=== PATIENT | female | born 1940 | race Caucasian/White ===

== ENCOUNTER 2020-04-09 08:48 | Inpatient (IN) ==
--- NOTE | 2020-04-04 10:33 | Anesthesiology Consultation ---
Date of Service April 04, 2020 Assessment & Plan (1) Encounter for pre-operative examination: - Per assessment on 04/02: Travel screen negative. No known COVID-19 positive contacts or current COVID-19 related symptoms. Surgeon arranging preop COVID ju ting (done 04/03 at [facility] surgeon's office states they will fax report when they receive it). Awaiting results. - Cardiology office visit: 11/22/19: "Patient is considered a lowintermediate cardiac risk. We will wait to schedule at least 6 weeks after pacemaker insertion, which was done 10/31/2019." DOS scheduled for 04/09. Chart Review Chart Review: Acceptable Risk for Surgery (pending evlauaiton AM DOS) and Patient seen in Pre Admission Testing (01/01/20) History Surgery Operation Date: 04/09/20 11:40 Proposed Procedures p Right Total Knee Arthroplasty - Scotty Funk DO Height/Weight Height: 4 ft 8 in Weight: 68.039 kg Allergies Allergy/AdvReac Type Severity Reaction Status Date / Time adhesive Allergy Mild rash from Verified 04/02/20 12:07 tape, EKG electrode leads balsam jose r Allergy Mild rash Verified 04/02/20 12:07 hydroquinone Allergy Unknown unknown Verified 04/02/20 12:07 reaction, "told beam dyer operator by silo man" thimerosal Allergy Unknown cobalt Verified 04/02/20 12:07 dichloride thimerosal contact solution- itching codeine AdvReac Mild N/V Verified 04/02/20 12:07 Medications Home Medications Medication Instructions Recorded Confirmed Last Taken albuterol sulfate 90 mcg/actuation 1 - 2 puffs INH QID PRN 12/14/17 04/02/20 Unknown aerosol inhaler ascorbic acid (vitamin C) 100 mg 100 mg PO QAM 12/14/17 04/02/20 Unknown tablet aspirin 81 mg tablet,delayed 81 mg PO QPM 12/14/17 04/02/20 Unknown release calcium carbonate 600 mg calcium 600 mg PO QAM tab 12/14/17 04/02/20 Unknown (1,500 mg) tablet conjugated estrogens 0.625 mg 0.625 mg PO QAM 12/14/17 04/02/20 Unknown tablet cyclosporine 0.05 % eye drops 1 drops OPB Q12H 12/14/17 04/02/20 Unknown flaxseed oil 1,300 mg-omega 3,6,9 1 cap PO QAM cap 12/14/17 04/02/20 Unknown 845 mg-117 mg-117 mg capsule furosemide 20 mg tablet 20 mg PO QAM 12/14/17 04/02/20 Unknown metronidazole 0.75 % topical cream 1 appln TOP DAILY gm 12/14/17 04/02/20 Unknown multivitamin 1 tab PO QAM 12/14/17 04/02/20 Unknown nitroglycerin 400 mcg/spray 1 sprays SUBLINGUAL Q5M PRN gm 12/14/17 04/02/20 Unknown translingual omeprazole 20 mg capsule,delayed 20 mg PO QAM 12/14/17 04/02/20 Unknown release potassium chloride 10 mEq 20 meq PO QAM 12/14/17 04/02/20 Unknown capsule,extended release pravastatin 80 mg tablet 80 mg PO QPM 12/14/17 04/02/20 Unknown gabapentin 300 mg capsule 300 mg PO HS #90 cap 07/21/18 04/02/20 Unknown conjugated estrogens [Premarin] 0.625 mg VAGINAL HS 12/26/19 04/02/20 Unknown triamterene-hydrochlorothiazid 1 tab PO QAM 12/26/19 04/02/20 Unknown [Maxzide-25mg] valsartan [Diovan] 80 mg PO QAM 12/26/19 04/02/20 Unknown vitamin E 1 tab PO QAM 12/26/19 04/02/20 Unknown metoprolol succinate [Toprol XL] 12.5 mg PO HS 01/29/20 04/02/20 Unknown Past Medical History Medical History Anemia Asthma stable Benign thyroid cyst CAD (coronary artery disease) non-obstructive DJD (degenerative joint disease) Dyslipidemia Fatty liver GERD (gastroesophageal reflux disease) controlled History of diverticulitis HTN (hypertension) Lumbar spinal stenosis Osteoarthritis 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, follows with [facility] [place] Peripheral neuropathy Past Family History Family History Mother Family history of diabetes mellitus Brother Family history of diabetes mellitus Past Surgical History Surgical History History of bunionectomy Left foot History of cardiac cath many years ago History of cataract surgery R/L History of colonoscopy History of tonsillectomy and adenoidectomy History of tooth extraction Hx of appendectomy Hx of breast biopsy Hx of cholecystectomy Hx of hysterectomy Social History Smoking Status: Never smoker Hx Alcohol Use: Yes alcohol intake frequency: holidays/special occasions only substance use type: does not use Testing Laboratory Results 04/03/20 WBC 5.1 H/H 10.8/33.1 PLATELETS 288 SODIUM 137 POTASSIUM 4.0 CHLORIDE 102 CO2 23 BUN 25 CREATININE 0.79 GLUCOSE 107 PT 10.9 PTT 30 INR 1.0 UA negative HGBA1C 6.2% Electrocardiogram Date: 01/01/20 Atrial-sensed ventricular-paced rhythm at 66bpm. Chest X-Ray Date: 01/01/20 FINDINGS: Cardiomediastinal and hilar silhouettes are within normal limits. Left pectoral pacer. The imaged leads appear intact. Calcified plaque of the thoracic aorta. There is no pneumothorax, pleural effusion, airspace consolidation or overt pulmonary edema. Thoracolumbar sigmoidal scoliosis with degenerative changes of the shoulders and spine. Anterolisthesis L4 on L5 is likely on a degenerative basis. Mild compression of the L1 vertebral body is likely chronic. IMPRESSION: No acute process. Report forwarded to PCP for continuity of care* Echocardiogram Date: 03/17/19 LVEF 60%. No regional wall motion abnormalities. Mild concentric LVH. Mild AV sclerosis. Moderate mitral annular calcification. PASP is 37 to 42 mmHg. Grade 1 diastolic dysfunction. Mild MR. mild TR. mild pulmonary hypertension. Grade 1 diastolic dysfunction. Stress Test Date: 07/19/19 Type: nuclear Based upon EKG criteria, this test is negative. Based upon nuclear imaging findings there is no evidence of myocardial ischemia or infarction. LVEF 71%. Other Testing Pacer check: 11/13/19: This is a normal implantable pacemaker remote follow-up. No significant device related abnormalities were noted. 7.4% RA paced. 95.0% RV paced. Battery life MOS 5 years. Mode DDDR. Device type [employer].
--- NOTE | 2020-04-07 18:39 | History & Physical Report ---
Date of Service April 07, 2020 date of surgery: 04/09/20 Procedure: Right Total Knee Arthroplasty Assessment & Plan (1) Arthritis of right knee: Risks and benefits of procedure discussed in detail today, patient would like to proceed with a Right total knee replacement at [facility] as scheduled. will obtain cardiac clearance prior to surgery as well as obtain PATs at [facility]. Will place on ASA 81mg po bid x 1 month post op, f/u 2 weeks post op for routine post-operative care and x-ray, sooner if having any problems. will make arrangements for HHPT at the time of discharge. At this point in time, has failed conservative measures and would like to proceed with surgical intervention. The risks and benefits have been discussed including, but not limited to, risk of infection, nerve injury, stiffness, loss of motion, failure to improve, etc. Reasonable outcomes and options of treatment were discussed. An explanation of appropriate alternatives to the procedure that may be advantageous were discussed and their risks and benefits, as well as the risks and benefits of not proceeding with treatment. I offered to answer any additional inquiries concerning the treatment involved. All the patient's questions were answered. The patient is agreeable, understanding of the treatment plan and alternatives, and wishes to proceed with the treatment plan. History of Present Illness Chief Complaint: Right knee pain Primary Care Provider: [place] Christine Warren Gilliland is a 79 year old female who complains of Right knee pain, presents for pre-op evaluation prior to a Right total knee replacement by dr Funk at [facility]. she complains of pain, crepitus, decreased range of motion, instability and stiffness in her Right knee. she states that the symptoms have been chronic and non-traumatic. Currently the patient states that the symptoms are moderate- severe. The pain is described as aching, sharp and throbbing. The symptoms occur continuously. The symptoms are aggravated by ascending stairs, daily activities, first steps while awake walking. Prior NSAIDs include IBU and Aleve. she has been treated with previous cortisone and visco injections in the past without much relief. she has had prior right knee scope with partial menisectomy approxiamately 12 years ago. Allergies Allergy/AdvReac Type Severity Reaction Status Date / Time adhesive Allergy Mild rash from Verified 04/02/20 12:07 tape, EKG electrode leads balsam jose r Allergy Mild rash Verified 04/02/20 12:07 hydroquinone Allergy Unknown unknown Verified 04/02/20 12:07 reaction, "told progress man by salon receptionist" thimerosal Allergy Unknown cobalt Verified 04/02/20 12:07 dichloride thimerosal contact solution- itching codeine AdvReac Mild N/V Verified 04/02/20 12:07 Home Medications Medication Instructions Recorded Confirmed Type albuterol sulfate 90 mcg/actuation 1 - 2 puffs INH QID PRN 12/14/17 04/02/20 History aerosol inhaler ascorbic acid (vitamin C) 100 mg 100 mg PO QAM 12/14/17 04/02/20 History tablet aspirin 81 mg tablet,delayed 81 mg PO QPM 12/14/17 04/02/20 History release calcium carbonate 600 mg calcium 600 mg PO QAM tab 12/14/17 04/02/20 History (1,500 mg) tablet conjugated estrogens 0.625 mg 0.625 mg PO QAM 12/14/17 04/02/20 History tablet cyclosporine 0.05 % eye drops 1 drops OPB Q12H 12/14/17 04/02/20 History flaxseed oil 1,300 mg-omega 3,6,9 1 cap PO QAM cap 12/14/17 04/02/20 History 845 mg-117 mg-117 mg capsule furosemide 20 mg tablet 20 mg PO QAM 12/14/17 04/02/20 History metronidazole 0.75 % topical cream 1 appln TOP DAILY gm 12/14/17 04/02/20 History multivitamin 1 tab PO QAM 12/14/17 04/02/20 History nitroglycerin 400 mcg/spray 1 sprays SUBLINGUAL Q5M PRN gm 12/14/17 04/02/20 History translingual omeprazole 20 mg capsule,delayed 20 mg PO QAM 12/14/17 04/02/20 History release potassium chloride 10 mEq 20 meq PO QAM 12/14/17 04/02/20 History capsule,extended release pravastatin 80 mg tablet 80 mg PO QPM 12/14/17 04/02/20 History gabapentin 300 mg capsule 300 mg PO HS #90 cap 07/21/18 04/02/20 Rx conjugated estrogens [Premarin] 0.625 mg VAGINAL HS 12/26/19 04/02/20 History triamterene-hydrochlorothiazid 1 tab PO QAM 12/26/19 04/02/20 History [Maxzide-25mg] valsartan [Diovan] 80 mg PO QAM 12/26/19 04/02/20 History vitamin E 1 tab PO QAM 12/26/19 04/02/20 History metoprolol succinate [Toprol XL] 12.5 mg PO HS 01/29/20 04/02/20 History Past Med/Surg History Medical History Anemia Asthma stable Benign thyroid cyst CAD (coronary artery disease) non-obstructive DJD (degenerative joint disease) Dyslipidemia Fatty liver GERD (gastroesophageal reflux disease) controlled History of diverticulitis HTN (hypertension) Lumbar spinal stenosis Osteoarthritis 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, follows with [facility] [place] Peripheral neuropathy Surgical History History of bunionectomy Left foot History of cardiac cath many years ago History of cataract surgery R/L History of colonoscopy History of tonsillectomy and adenoidectomy History of tooth extraction Hx of appendectomy Hx of breast biopsy Hx of cholecystectomy Hx of hysterectomy Family History Mother Family history of diabetes mellitus Brother Family history of diabetes mellitus Social History Smoking Status: Never smoker Second Hand Exposure: Yes (IN THE PAST); Hx Alcohol Use: Yes Preferred Language: Monegasque Director Asset Required: No Beliefs That Will Affect Care: None Current Living Situation: Spouse Feels Safe at Home: Yes Safety Concerns: Feels Safe At This Time Assistive Devices: Cane Review of Systems Review of Systems: All systems reviewed & are unremarkable except as noted in HPI & below Constitutional: no fever, no chills and no sweats Respiratory: no cough and no dyspnea Cardiovascular: no chest pain, no dyspnea and no orthopnea Gastrointestinal: no abdominal pain, no nausea and no vomiting Musculoskeletal: as per Subjective / HPI Physical Exam Physical Exam: HT: 4ft 11in WT: 67.5kg BP: 112/70 Constitutional: WD/WN, vitals as above no acute distress Respiratory: normal respiratory effort, lungs clear to auscultation no respiratory distress, no labored breathing and does not use accessory muscles Cardiovascular: RRR, no murmur, no edema Gastrointestinal (Abdomen): normal bowel sounds, soft, nontender, no hepatosplenomegaly Musculoskeletal: Knee: + knee abnormal to inspection (Right Knee-), + effusion (+1 effusion), + limited ROM of knee (ROM 0/3/110), + knee ROM with crepitation, + joint line tenderness (medial joint line) and + Lily's sign positive; no deformity, no skin erythema, no ecchymosis, no valgus laxity, no varus laxity, anterior drawer test negative, Renuka's sign negative and pivot shift test negative Results & Data Results & Data ([facility]) Diagnostic Findings right knee x-ray from 11/21/19 showing complete loss joint space medial compartment with overall varus alignment, there is also narrowing of the lateral compartment and patellofemoral joint. there is osteophyte formation, subchondral sclerosis noted, no loose bodies, no acute bony pathology. overall impression tricompartmental degenerative changes to the right knee.
[~2020-04-09 08:48] MED LIST: ACETAMINOPHEN 500 MG TAB PO SCH; BUPIVACAINE 0.25% 30 ML VIAL ONE; BUPIVACAINE 0.5 % 5 MG/1 ML PF 10ML VIAL ONE; CeleBREX 200 MG CAP PO SCH; FAMOTIDINE 20 MG TAB PO SCH; GABAPENTIN 300 MG CAP PO SCH; LR 500ML BOLUS, THEN 15ML/HR IV SCH; METOCLOPRAMIDE HCL 10 MG TABLET PO SCH; ROPIVACAINE 0.5% HCL/PF 150 MG, BUPIVACAINE 0.75% MPF 20 ML, EPINEPHrine 30MG/30ML (OR ... INSTIL SCH; TRANEXAMIC ACID 1,000 MG **IV Intra-op IV SCH; TRANEXAMIC ACID 1,000 MG **IV Pre-op IV SCH; ceFAZolin 1000MG 1,000 MG/7.5 ML SYR IV SCH; dexAMETHasone 4 MG TAB PO SCH
--- NOTE | 2020-04-09 10:20 | History & Physical Bridge Note ---
Date of Service April 09, 2020 History & Physical Bridge Note I have examined the patient, reviewed the History & Physical and in the interval since the performance of the History & Physical I have noted the following changes of clinical significance: no changes noted
[2020-04-09] MEDS ORDERED: BACITRACIN INJ 50,000 UNIT VIAL ONE (10:49)
[2020-04-09] MEDS ORDERED: ORTHO JOINT ANESTHETIC ONE (10:49)
[2020-04-09] MEDS ORDERED: MIDAZOLAM HCL 1 MG/ML 2ML VIAL ONE (10:50)
[2020-04-09] MEDS ORDERED: PROPOFOL IV EMULSION 10 MG/ML 20 ML VIAL IV ONE (10:50)
[2020-04-09] MEDS ORDERED: LIDOCAINE HCL 2% 2 ML VIAL/AMP(20MG/ML) INFIL ONE (10:50)
[2020-04-09] MEDS ORDERED: ATROPINE SULFATE 0.1 MG/ML 10ML SYR IV PRN (10:57)
[2020-04-09] MEDS ORDERED: ePHEDrine sulfate 50 MG/ML AMP IV PRN (10:57)
[2020-04-09] MEDS ORDERED: ONDANSETRON INJ 2 MG/ML 2 ML VIAL IV PRN (10:57)
[2020-04-09] MEDS ORDERED: fentaNYL citrate 100 MCG/2 ML VIAL IV PRN (10:57)
--- NOTE | 2020-04-09 13:02 | Operative Report ---
Post Operative Report Pre & Post Diagnosis Operation Date: 04/09/20 11:15 Pre-Op Diagnosis: Osteoarthritis Knee Right Post-Op Diagnosis: Osteoarthritis Knee Right I identified the patient and participated in the time-out.: Yes Procedure Operation Date: 04/09/20 11:15 Actual Procedures p Right Total Knee Arthroplasty(Right) utilizing [employer]-g[employer] journey 2 with block size 2 femur size 1 tibia 11 polyethylene 29 round patella- Scotty Funk DO Surgeon Scotty Funk DO Road Freight Brake Coupler Eh [id number] Estimated Blood Loss 5 Findings Consistent with Post-Op Diagnosis Patient presents with severe end-stage DJD subluxation of femur on tibia eburnated [id number] large medial and lateral osteophytes eburnated subchondral cystic changes with moderate to large effusion Specimens Bone and cartilage Drains Medium bore Hemovac Anesthesia Type MAC Spinal Regional Disposition Accompanied Patient To Recovery: No Disposition: Recovery Room Indications Patient presents with ongoing planes of pain about the right knee with longstanding DJD with injections for decades she has eburnated [id number] marginal osteophytes subluxation of femur medially on tibia varus alignment large effusion Description of Procedure After proper prepping and draping of the Right lower extremity anterior midline incision was made over the region of the extensor extensor mechanism after meticulous hemostasis was obtained and maintained in subcutaneous tissues a medial parapatellar incision was made The patella was subluxed lateralward the medial lateral gutter were cleaned from any hypertrophic synovitis and scar tissue of the distal femoral block was placed and the distal femoral osteotomy cut was made subsequently the chamfers anterior and posterior osteotomy cuts were made utilizing the 4-in-1 block the tibia was subsequently subluxed anteriorward medial and ateral meniscal remnants were excised in their entirety remnants of the anterior and posterior cruciate ligaments were excised in their entirety excellent exposure of the proximal tibia was obtained the tibial osteotomy guide was placed on the proximal tibial osteotomy cut was made once again the knee was irrigated with copious amounts of sterile saline solution the patella was subsequently everted lateralward thickened scar tissue around the patella was removed the patella was subsequently cut utilizing a freehand technique and was drilled prepared for final preparation and placement of patella socially flexion-extension gaps were checked and the equal and symmetric trials were placed to the appropriate femoral and tibial trials with poly-spacer being placed for equal flexion and extension gaps and full range of motion including extension to 0 and flexion to 140 the trial components after having been taken to recovery range of motion was subsequently removed meticulous hemostasis was obtained and maintained subsequently a knee block injection of joint cocktail including ropivacaine 0.5% 150 mg. Bupivacaine 0.5% epinephrine 1-200,030 mL's toradol 30 mg dexamethasone 4 mg ketamine 10 mg clonidine 100 micrograms normal saline solution 30 mg was infiltrated into the soft tissues of the posterior knee medial lateral gutters and periosteal synovium special attention was paid to protect neurovascular structures at all times subsequently trial components having been removed the knee was irrigated with sterile saline solution. debris was removed the proximal tibia was subsequently prepared and was made ready for the placement of the tibial component tibial component was also cemented and tamped into position the femoral component was subsequently placed and cemented in the position the patellar component was subsequently cemented in position because hemostasis once again obtained and maintained wound having been thoroughly irrigated with debridement and debridement lavage was performed as well as a medial parapatellar incision closed with #1 Vicryl in interrupted fashion subcutaneous was closed with #2 Vicryl skin was closed with skin clips. PA-C was necessary for prepping and drapping as well as wound closure of deep fascia Sub cutaneous tissue and skin and was necessary for the case. A sterile compressive dressing was placed patient was taken to recovery in stable condition of report dictated by Good I attest to the content of the Intraoperative Record and any orders documented therein. Any exceptions are noted below. I attest to the content of the Intraoperative Record and any orders documented therein. Any exceptions are noted below.
--- NOTE | 2020-04-09 15:24 | Anesthesiology Progress Note ---
Date of Service April 09, 2020 Anesthesia Post Procedure Vital Signs Vital Signs: Temp Pulse Pulse Resp BP BP Pulse Ox 04/09/20 15:15 37.4 C 76 16 156/66 H 98 04/09/20 15:00 80 17 150/63 H 98 04/09/20 14:55 68 19 136/66 95 04/09/20 14:45 69 13 157/69 H 95 04/09/20 14:35 72 20 153/73 H 100 04/09/20 14:25 69 17 148/65 H 97 04/09/20 14:15 70 17 142/65 H 98 04/09/20 14:05 68 17 142/67 H 98 04/09/20 13:55 72 19 144/65 H 97 04/09/20 13:45 79 15 143/65 H 100 04/09/20 13:39 36.9 C 71 16 130/68 100 04/09/20 09:32 36.6 C 75 22 165/69 H 100 Pain Intensity Right Knee: Pain Intensity: 0 Transfer of Care Handoff Completed per policy Notes Mental Status: alert / awake / arousable and participated in evaluation Nausea / Vomiting: adequately controlled Pain: adequately controlled Airway Patency, RR, SpO2: stable & adequate BP & HR: stable & adequate Hydration State: stable & adequate Neuraxial Anesthesia: was administered and sensory block is resolving Anesthetic Complications: no major complications apparent and Pt Satisfied with anesthetic care
[2020-04-09] MEDS ORDERED: NALOXONE HCL 0.4 MG/1 ML VIAL/CARP IV PRN (15:46)
[2020-04-09] MEDS ORDERED: MAGNESIUM HYDROXIDE SUSP 30 ML UDC PO PRN (15:46)
[2020-04-09] MEDS ORDERED: diphenhydrAMINE Capsule 25 MG CAP PO PRN (15:46)
[2020-04-09] MEDS ORDERED: HYDROmorphone INJ 1 MG/ML SYRINGE IV PRN (15:46)
[2020-04-09] MEDS ORDERED: ALBUTEROL HFA 8 GM INHALER INH PRN (15:46)
[2020-04-09] MEDS ORDERED: bisacodyL 10 MG SUPP PR PRN (15:46)
--- NOTE | 2020-04-09 16:18 | Hospitalist Consultation ---
Date of Consultation April 09, 2020 Assessment & Plan (1) Status post total right knee replacement: - Pain management, bowel regimen and DVT ppx with ASA 81 mg BID per the primary team - PT/OT consults, pt is planning on outpatient therapy with services, then outpatient - Follow am CBC to monitor for acute blood loss, pt with hx of anemia (2) CAD (coronary artery disease): - Follows with [facility] [place] as outpt with Dr. Cunningham - Continue asa 81 mg, lasix 20 mg QAM, metoprolol succinate 12.5 mg daily, triamterene-hctz 25 mg daily, valsartan 80 mg daily - will turn off IVF tomorrow am and resume home diuretics. (3) HTN (hypertension): - Continue meds as above (4) Dyslipidemia: - Cont pravastatin 80 mg QPM (5) Pacemaker: - hx of such, placed 10/31/[address] by Dr. Calle (6) Asthma: - Hx of such - does not appear to be on any inhalers or supplemental O2. (7) Anemia: - Hs of such, monitor with am labs for acute blood loss anemia. Not on supplementation per home med rec. (8) Peripheral neuropathy: - Cont gabapentin 300 mg HS (9) GERD (gastroesophageal reflux disease): - Continue omeprazole - pt reports history of diverticulosis - encourage bowel regimen and good oral intake s/p surgery DVT ppx: teds, scds, ambulation, asa 81 mg BID CODE: FULL Dispo: From home, discharge likely within 1-2 days per the primary team. Thank you for involving us in the care of Mrs. Austin. Please do not hesitate to call with questions or concerns. At this time medicine service will sign off. Supervising Physician Co-Signing Physician Notes Patient was seen and examined independently I discussed the case with Talia Hercules PAC I reviewed pertinent past medical social family history and also the plan of care and agree with the plan of care. pt is doing well post op, still with nerve block in affect, on 4 hypertensive meds two are diuretics, will continue these but eval bp in am pt is awake and alert, cardiac is regular , lungs clear, right leg still with anesthesia check labs in am Any exceptions will be noted below History of Present Illness Reason for Consultation: HTN, CAD, post op medical management Requesting Physician: Dr. Funk Attending Physician: Scotty Funk, History of Present Illness This is an 79 yo F with PMHx of CAD, s/p pacemaker insertion for hx of bradycardia, HTN, HLD, asthma, lumbar spinal stenosis, GERD, fatty liver, anemia, peripheral neuropathy, osteoarthritis who presented for Right total knee arthroplasty by Dr. Funk on 04/09/2020. She reports doing well but that her left lower leg is still quite numb after having surgery. She is able to wiggle her toes without much difficulty. Patient reports that she is going to have home health services for PT and OT directly after discharge and then transition over to outpatient PT/OT afterwards. She lives at home with her who is able to help around the house. Her pain is currently well controlled. Last BM was yesterday morning. Patient did not take any of her scheduled antihypertensives this morning, and reports that she follows with cardiology in [place]. Allergies Allergy/AdvReac Type Severity Reaction Status Date / Time adhesive Allergy Mild rash from Verified 04/09/20 09:20 tape, EKG electrode leads balsa jose r Allergy Mild rash Verified 04/09/20 09:20 hydroquinone Allergy Unknown unknown Verified 04/09/20 09:20 reaction, "told machine driller by cemetery counselor" thimerosal Allergy Unknown cobalt Verified 04/09/20 09:20 dichloride thimerosal contact solution- itching codeine AdvReac Mild N/V Verified 04/09/20 09:20 Home Medications Medication Instructions Recorded Confirmed Type albuterol sulfate 90 mcg/actuation 1 - 2 puffs INH QID PRN 12/14/17 04/09/20 History aerosol inhaler ascorbic acid (vitamin C) 100 mg 100 mg PO QAM 12/14/17 04/09/20 History tablet aspirin 81 mg tablet,delayed 81 mg PO QPM 12/14/17 04/09/20 History release calcium carbonate 600 mg calcium 600 mg PO QAM tab 12/14/17 04/09/20 History (1,500 mg) tablet conjugated estrogens 0.625 mg 0.625 mg PO QAM 12/14/17 04/09/20 History tablet cyclosporine 0.05 % eye drops 1 drops OPB Q12H 12/14/17 04/09/20 History flaxseed oil 1,300 mg-omega 3,6,9 1 cap PO QAM cap 12/14/17 04/09/20 History 845 mg-117 mg-117 mg capsule furosemide 20 mg tablet 20 mg PO QAM 12/14/17 04/09/20 History metronidazole 0.75 % topical cream 1 appln TOP DAILY gm 12/14/17 04/09/20 History multivitamin 1 tab PO QAM 12/14/17 04/09/20 History nitroglycerin 400 mcg/spray 1 sprays SUBLINGUAL Q5M PRN gm 12/14/17 04/09/20 History translingual omeprazole 20 mg capsule,delayed 20 mg PO QAM 12/14/17 04/09/20 History release potassium chloride 10 mEq 20 meq PO QAM 12/14/17 04/09/20 History capsule,extended release pravastatin 80 mg tablet 80 mg PO QPM 12/14/17 04/09/20 History gabapentin 300 mg capsule 300 mg PO HS #90 cap 07/21/18 04/09/20 Rx conjugated estrogens [Premarin] 0.625 mg VAGINAL HS 12/26/19 04/09/20 History triamterene-hydrochlorothiazid 1 tab PO QAM 12/26/19 04/09/20 History [Maxzide-25mg] valsartan [Diovan] 80 mg PO QAM 12/26/19 04/09/20 History vitamin E 1 tab PO QAM 12/26/19 04/09/20 History metoprolol succinate [Toprol XL] 12.5 mg PO HS 01/29/20 04/09/20 History Patient History Medical History (Updated 04/09/20 @ 16:08 by Yary Beckett PA-C) Anemia Asthma stable Benign thyroid cyst CAD (coronary artery disease) non-obstructive DJD (degenerative joint disease) Dyslipidemia Fatty liver GERD (gastroesophageal reflux disease) controlled History of diverticulitis HTN (hypertension) Lumbar spinal stenosis Osteoarthritis 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, follows with [facility] [place] [facility] Peripheral neuropathy Surgical History (Updated 04/09/20 @ 16:08 by Yary Beckett PA-C) History of bunionectomy Left foot History of cardiac cath many years ago History of cataract surgery R/L History of colonoscopy History of tonsillectomy and adenoidectomy History of tooth extraction Hx of appendectomy Hx of breast biopsy Hx of cholecystectomy Hx of hysterectomy Family History Mother Family history of diabetes mellitus Brother Family history of diabetes mellitus Social History Smoking Status: Never smoker Second Hand Exposure: Yes (IN THE PAST); Hx Alcohol Use: Yes Preferred Language: Ugand[place] Coin Machine Collector Required: No Beliefs That Will Affect Care: None Current Living Situation: Spouse Feels Safe at Home: Yes Safety Concerns: Feels Safe At This Time Assistive Devices: Cane Review of Systems Review of Systems: Constitutional: No fever, sweats or chills Eyes: No diplopia, no worsening or blurred vision ENT: normal hearing, no trouble swallowing Respiratory: No cough, sputum, dyspnea at rest or on exertion Cardiovascular: No chest pain, tightness or palpitations Abdomen: No pain, nausea, vomiting, diarrhea or constipation Musculoskeletal: As per HPI. No calf pain or swelling. Neurologic: No weakness, numbness/tingling, or balance problems Psychiatric: No anxiety or depression Skin: No rash or itch Physical Exam Physical Exam: General: awake, alert, no apparent distress, + obese, BMI 33.1 Head: Normocephalic, atraumatic ENT: PERRL, EOMI, no pharyngeal exudate, mucous membranes moist Chest: Clear to auscultation, on room air, no adventitious breath sounds Cardiac: Regular rate and rhythm, + pacemaker insertion left chest wall, no murmur, no JVD, normal peripheral pulses, good capillary refill Abdominal: NABS x 4 quadrants, soft, nondistended, nontender to palpation, no rebound or guarding Extremities: Normal inspection, right lower extremity dressing over knee C/D/I, ice pack in place, Hemovac present, able to wiggle toes, decreased sensation to light touch distally. Otherwise no peripheral edema or erythema, calfs nontender to palpation Psych: Normal mood and affect Neuro: AAO x 3, strength intact bilaterally, LLE: 5/5 , RLE 3/5, s/p surgery in the right, no gross motor deficits, speech is clear Results & Data Results & Data ([facility]) Vital Signs (Past 12 Hours) Vital Signs Temp Pulse Pulse Resp BP BP Pulse Ox 04/09/20 15:46 36.4 C L 77 18 153/74 H 98 04/09/20 15:15 37.4 C 76 16 156/66 H 98 04/09/20 15:00 80 17 150/63 H 98 04/09/20 14:55 68 19 136/66 95 04/09/20 14:45 69 13 157/69 H 95 04/09/20 14:35 72 20 153/73 H 100 04/09/20 14:25 69 17 148/65 H 97 04/09/20 14:15 70 17 142/65 H 98 04/09/20 14:05 68 17 142/67 H 98 04/09/20 13:55 72 19 144/65 H 97 04/09/20 13:45 79 15 143/65 H 100 04/09/20 13:39 36.9 C 71 16 130/68 100 04/09/20 09:32 36.6 C 75 22 165/69 H 100 PG Care Time/CCT Total # of Minutes Spent Total Time Spent with Patient: Total time spent is greater than 50% in coordination of care (as documented) at patient's floor/unit and/or counseling patient: Coding Level of Care Code 34570 Inpt Consult Level 3 Diagnoses Status post total right knee replacement Z96.651 CAD (coronary artery disease) I25.10 HTN (hypertension) I10 Dyslipidemia E78.5 Pacemaker Z95.0 Asthma J45.909 Anemia D64.9 Peripheral neuropathy G62.9 GERD (gastroesophageal reflux disease) K21.9
[2020-04-09] MEDS: SODIUM CHLORIDE 0.9% 1000ML 1,000 ML IV SCH (16:27)
--- NOTE | 2020-04-09 16:47 | XRay Report ---
XR knee RT 1 or 2V routine CLINICAL HISTORY: Postoperative evaluation. COMPARISON: None FINDINGS: Alignment of the total right knee arthroplasty is anatomic. No periprosthetic fracture. St aples and surgical drains are noted. IMPRESSION: Expected findings following total right knee arthroplasty. ACT 112: Negative or not required by law. Electronically signed by: Villa Ronquillo M.D. 04/09/2020 4:46 PM
[2020-04-09] MEDS ORDERED: NITROGLYCERIN 60 SPRAYS/4.9 GM SPRAY SL PRN (16:52)
[2020-04-09] MEDS ORDERED: MoRPHine SULFATE 2 MG/ML CARP IV PRN (16:56)
[2020-04-09] MEDS: KETOROLAC TROMETHAMINE 15 MG/ML VIAL IV SCH ×2 (17:46→22:30)
[2020-04-09] MEDS: ACETAMINOPHEN 500 MG TAB PO SCH ×2 (17:46→22:30)
[2020-04-09] MEDS: ceFAZolin 1000MG 1,000 MG/7.5 ML SYR IV SCH (20:24)
[2020-04-09] MEDS: oxyCODONE HCL IR 5 MG TAB (IMMEDIATE RELEASE) PO PRN (20:31)
[2020-04-09] MEDS: METOPROLOL SUCC 25MG EXT REL TAB PO SCH (20:32)
[2020-04-09] MEDS: PRAVASTATIN SOD 40 MG TAB PO SCH (20:32)
[2020-04-09] MEDS: SENNA 8.6 MG TAB PO SCH (20:33)
[2020-04-09] MEDS: DOCUSATE SODIUM 100 MG CAP PO SCH (20:33)
[2020-04-09] MEDS: ASPIRIN 81 MG ECTAB PO SCH (20:33)
[2020-04-09] MEDS: GABAPENTIN 300 MG CAP PO SCH (20:34)
[2020-04-09] MEDS: PREMARIN VAG CRM 14 APPLN/30 GM TUBE PV SCH (22:36)
[2020-04-10] MEDS: oxyCODONE HCL IR 5 MG TAB (IMMEDIATE RELEASE) PO PRN ×4 (00:51→17:08)
[2020-04-10] MEDS: SODIUM CHLORIDE 0.9% 1000ML 1,000 ML IV SCH (04:01)
[2020-04-10] MEDS: ceFAZolin 1000MG 1,000 MG/7.5 ML SYR IV SCH (04:02)
[2020-04-10] MEDS: KETOROLAC TROMETHAMINE 15 MG/ML VIAL IV SCH ×2 (04:02→10:44)
[2020-04-10] MEDS: ONDANSETRON INJ 2 MG/ML 2 ML VIAL IV PRN ×2 (04:20→19:18)
[2020-04-10 05:58] LABS: Hematocrit (blood only) 28.2 % (37-47); Hemoglobin 9.4 g/dL (12.0-16.0); Mean Corpuscular Hemoglobin 29.4 pg (25-34); Mean Corpuscular Hgb Conc 33.3 g/dL (32-36); Mean Corpuscular Volume 88.1 fL (80-100); Mean Platelet Volume 9.3 fL (7.4-10.4); Platelet Count 249 K/uL (130-400); RDW Coefficient of Variation 13.1 % (11.5-14.5); RDW Standard Deviation 42.2 fL (36.4-46.3); White Blood Count 8.67 K/uL (4.8-10.8)
[2020-04-10] MEDS: ACETAMINOPHEN 500 MG TAB PO SCH ×3 (06:21→22:00)
[2020-04-10 06:25] LABS: BUN Creatinine Ratio 25.8 (10-20); Calcium 7.9 mg/dl (8.5-10.1); Creatinine Clr Calc Pharmacy 38.2 ml/min; Est GFR (Non-African American) 60.4; Potassium 3.9 mmol/L (3.5-5.1)
[2020-04-10] MEDS: DOCUSATE SODIUM 100 MG CAP PO SCH ×2 (08:48→21:56)
[2020-04-10] MEDS: VALSARTAN 80 MG TAB PO SCH (08:48)
[2020-04-10] MEDS: POTASSIUM CHLORIDE CRTAB 20 MEQ TABCR PO SCH (08:49)
[2020-04-10] MEDS: ASPIRIN 81 MG ECTAB PO SCH ×2 (08:49→21:55)
[2020-04-10] MEDS: ASCORBIC ACID 500 MG TAB PO SCH (08:50)
[2020-04-10] MEDS: ESTROGENS, CONJUGATED 0.625 MG TAB PO SCH (08:50)
[2020-04-10] MEDS: MULTIVITAMIN TAB PO SCH (08:51)
[2020-04-10] MEDS: TOCOPHERYL, DL-ALPHA 400 UNITS CAP PO SCH (08:51)
[2020-04-10] MEDS: CALCIUM CARBONATE 500 MG CHEWABLE TAB PO SCH (08:51)
[2020-04-10] MEDS: FUROSEMIDE 20 MG TAB PO SCH (08:56)
[2020-04-10] MEDS: TRIAMTERENE/HCTZ 37.5/25MG TAB PO SCH (08:56)
[2020-04-10] MEDS ORDERED: metroNIDAZOLE 0.75% TOPICAL GEL 45 GM TUBE TOP SCH (09:00)
--- NOTE | 2020-04-10 09:12 | Orthopedic Progress Note ---
Date of Service April 10, 2020 Assessment & Plan (1) Arthritis of right knee: Postop day 1 status post right total knee arthroplasty. PT/OT protocols. Weightbearing as tolerated. DVT prophylaxis-aspirin p.o. twice daily, AYAZs, YOSEF capellan. Pain management as written. Plan for discontinuation of Hemovac today Admission and Anticipated Discharge Date Admission Date: April 09, 2020 Subjective Postop day 1 Patient having some mild pain this morning in the knee. No other complaints at this time. Denies shortness of breath, chest pain, lightheadedness. Physical Exam Physical Exam: Dressings are clean, dry, and intact. Calves are soft nontender. Neurovascular intact. Toes are mobile. She has good dorsiflexion and plantarflexion of the foot. Hemovac drainage was minimal. Results & Data ([facility]) Vital Signs (Past 12 Hours) Vital Signs Temp Pulse Pulse Resp BP Pulse Ox 04/10/20 08:45 137/74 04/10/20 08:14 36.6 C 71 17 156/70 H 98 04/10/20 02:50 36.4 C L 69 16 125/67 98 04/09/20 21:50 36.3 C L 72 16 146/62 H 95 Laboratory Results Laboratory Results WBC 8.67 K/uL (4.8-10.8) 04/10/20 05:42 RBC 3.20 M/uL (4.2-5.4) L 04/10/20 05:42 Hgb 9.4 g/dL (12.0-16.0) L 04/10/20 05:42 Hct 28.2 % (37-47) L 04/10/20 05:42 MCV 88.1 fL (80-100) 04/10/20 05:42 MCH 29.4 pg (25-34) 04/10/20 05:42 MCHC 33.3 g/dL (32-36) 04/10/20 05:42 RDW Std Deviation 42.2 fL (36.4-46.3) 04/10/20 05:42 RDW Coeff of Lee 13.1 % (11.5-14.5) 04/10/20 05:42 Plt Count 249 K/uL (130-400) 04/10/20 05:42 MPV 9.3 fL (7.4-10.4) 04/10/20 05:42 Sodium 137 mmol/L (136-145) 04/10/20 05:42 Potassium 3.9 mmol/L (3.5-5.1) 04/10/20 05:42 Chloride 105 mmol/L (98-107) 04/10/20 05:42 Carbon Dioxide 22 mmol/L (21-32) 04/10/20 05:42 Anion Gap 10.0 (3-11) 04/10/20 05:42 BUN 23 mg/dl (7-18) H 04/10/20 05:42 Creatinine 0.90 mg/dl (0.6-1.2) 04/10/20 05:42 Est Cr Clr Drug Dosing 38.2 ml/min 04/10/20 05:42 Est GFR ( Amer) 70.0 04/10/20 05:42 Est GFR (Non-Af Amer) 60.4 04/10/20 05:42 BUN/Creatinine Ratio 25.8 (10-20) H 04/10/20 05:42 Glucose 116 mg/dl (70-99) H 04/10/20 05:42 Calcium 7.9 mg/dl (8.5-10.1) L 04/10/20 05:42 Blood Type A Positive 04/09/20 09:20 Antibody Screen NEGATIVE 04/09/20 09:20
[2020-04-10] MEDS: METOCLOPRAMIDE HCL INJ 5 MG/ML 2 ML VIAL IV PRN (20:05)
[2020-04-10] MEDS: PREMARIN VAG CRM 14 APPLN/30 GM TUBE PV SCH (21:53)
[2020-04-10] MEDS: GABAPENTIN 300 MG CAP PO SCH (21:55)
[2020-04-10] MEDS: CeleBREX 200 MG CAP PO SCH (21:56)
[2020-04-10] MEDS: SENNA 8.6 MG TAB PO SCH (21:56)
[2020-04-10] MEDS: PRAVASTATIN SOD 40 MG TAB PO SCH (21:57)
[2020-04-10] MEDS: METOPROLOL SUCC 25MG EXT REL TAB PO SCH (21:58)
[2020-04-11] MEDS: ACETAMINOPHEN 500 MG TAB PO SCH ×3 (06:04→21:58)
--- NOTE | 2020-04-11 07:38 | Orthopedic Progress Note ---
Date of Service April 11, 2020 Assessment & Plan (1) Status post total right knee replacement: POD #2 s/p Right TKA pt/ot dvt proph with YOSEF/SCD/ASA plan for d/c home with HHPT after PT today. Admission and Anticipated Discharge Date Admission Date: April 09, 2020 Subjective POD #2 s/p Right TKA Review of Systems Review of Systems: All systems reviewed & are unremarkable except as noted in HPI & below Constitutional: no fever, no chills and no sweats Respiratory: no cough and no dyspnea Cardiovascular: no chest pain and no dyspnea Gastrointestinal: no abdominal pain, no nausea and no vomiting Physical Exam Physical Exam: Vital Signs Temp 36.4 C L 04/11/20 07:14 Pulse 69 04/11/20 07:14 Resp 15 04/11/20 07:14 BP 134/71 04/11/20 07:14 Pulse Ox 97 04/11/20 07:14 Intake & Output 04/10/20 04/11/20 04/11/20 18:59 06:59 18:59 Intake Total 540 / 540 Output Total 1125 / 1125 Balance -585 / -585 Intake: Oral 540 / 540 Output: Urine 1125 / 1125 Other: # Unmeasured Voi ds 1 Constitutional: WD/WN, vitals as above no acute distress Musculoskeletal: Right Leg: NVDI, calf SNT, negative ember sign. DP palpable, able to wiggle toes/ankle movement without difficulty. CAROLINA clean dry and intact. Results & Data ([facility]) Vital Signs (Past 12 Hours) Vital Signs Temp Pulse Pulse Resp BP Pulse Ox 04/11/20 07:14 36.4 C L 69 15 134/71 97 04/10/20 23:32 36.6 C 84 18 116/73 98 04/10/20 21:54 74 114/67 Laboratory Results Laboratory Results WBC 8.67 K/uL (4.8-10.8) 04/10/20 05:42 RBC 3.20 M/uL (4.2-5.4) L 04/10/20 05:42 Hgb 9.4 g/dL (12.0-16.0) L 04/10/20 05:42 Hct 28.2 % (37-47) L 04/10/20 05:42 MCV 88.1 fL (80-100) 04/10/20 05:42 MCH 29.4 pg (25-34) 04/10/20 05:42 MCHC 33.3 g/dL (32-36) 04/10/20 05:42 RDW Std Deviation 42.2 fL (36.4-46.3) 04/10/20 05:42 RDW Coeff of Lee 13.1 % (11.5-14.5) 04/10/20 05:42 Plt Count 249 K/uL (130-400) 04/10/20 05:42 MPV 9.3 fL (7.4-10.4) 04/10/20 05:42 Sodium 137 mmol/L (136-145) 04/10/20 05:42 Potassium 3.9 mmol/L (3.5-5.1) 04/10/20 05:42 Chloride 105 mmol/L (98-107) 04/10/20 05:42 Carbon Dioxide 22 mmol/L (21-32) 04/10/20 05:42 Anion Gap 10.0 (3-11) 04/10/20 05:42 BUN 23 mg/dl (7-18) H 04/10/20 05:42 Creatinine 0.90 mg/dl (0.6-1.2) 04/10/20 05:42 Est Cr Clr Drug Dosing 38.2 ml/min 04/10/20 05:42 Est GFR ( Amer) 70.0 04/10/20 05:42 Est GFR (Non-Af Amer) 60.4 04/10/20 05:42 BUN/Creatinine Ratio 25.8 (10-20) H 04/10/20 05:42 Glucose 116 mg/dl (70-99) H 04/10/20 05:42 Calcium 7.9 mg/dl (8.5-10.1) L 04/10/20 05:42 Blood Type A Positive 04/09/20 09:20 Antibody Screen NEGATIVE 04/09/20 09:20
--- NOTE | 2020-04-11 07:59 | Discharge Summary ---
Date of Service date of surgery: April 11, 2020 date of admission: 04/09/20 Admission HPI Per Admitting Provider Darshana is a 79 year old female who complains of Right knee pain, presents for pre- op evaluation prior to a Right total knee replacement by dr Funk at [facility]. she complains of pain, crepitus, decreased range of motion, instability and stiffness in her Right knee. she states that the symptoms have been chronic and non-traumatic. Currently the patient states that the symptoms are moderate- severe. The pain is described as aching, sharp and throbbing. The symptoms occur continuously. The symptoms are aggravated by ascending stairs, daily activities, first steps while awake walking. Prior NSAIDs include IBU and Aleve. she has been treated with previous cortisone and visco injections in the past without much relief. she has had prior right knee scope with partial menisectomy approxiamately 12 years ago. Principal Diagnosis a Discharge Exam Vital Signs Temp 36.4 C L 04/11/20 07:14 Pulse 69 04/11/20 07:14 Resp 15 04/11/20 07:14 BP 134/71 04/11/20 07:14 Pulse Ox 97 04/11/20 07:14 Intake & Output 04/10/20 04/11/20 04/11/20 18:59 06:59 18:59 Intake Total 540 / 540 Output Total 1125 / 1125 Balance -585 / -585 Intake: Oral 540 / 540 Output: Urine 1125 / 1125 Other: # Unmeasured Voids 1 Musculoskeletal Right KNee: NVDI, calf SNT, negative ember sign. DP palpable, able to wiggle toes/ankle movement without difficulty. CAROLINA dressing clean dry and intact. expected post-operative bruising noted. Discharge Data Allergies Allergy/AdvReac Type Severity Reaction Status Date / Time adhesive Allergy Mild rash from Verified 04/09/20 09:20 tape, EKG electrode leads balsam jose r Allergy Mild rash Verified 04/09/20 09:20 hydroquinone Allergy Unknown unknown Verified 04/09/20 09:20 reaction, "told mortgage advisor by lehr tender" thimerosal Allergy Unknown cobalt Verified 04/09/20 09:20 dichloride thimerosal contact solution- itching codeine AdvReac Mild N/V Verified 04/09/20 09:20 Consultations 04/09/20 15:46 Consult Case Management - Discharge Planning Routine Consult Hospitalist Routine Procedures Performed Operation Date: 04/09/20 11:15 Actual Procedures p Right Total Knee Arthroplasty(Right) - Scotty Funk DO Ordered Studies 04/09/20 13:17 US - OR guided needle placemen Routine Hospital Course (1) Status post total right knee replacement: POD #2 s/p Right TKA pt/ot dvt proph with YOSEF/SCD/ASA plan for d/c home with HHPT after PT today. Total Time Total Time Spent Total Time Spent (In Minutes): 20 Total Time Includes: Examination of the Patient, Discharge Planning and Medication Reconciliation Discharge Plan Discharge Items Patient Disposition: Home - Home Health Services Reason For Visit: Osteoarthritis Knee Right Discharge Diagnosis: Osteoarthritis right knee Condition on Discharge: Good Activity: Per Instructions section Weightbearing: Right weightbearing Weightbearing Comment: As tolerated with walker Non-emergency contact: Surgeon Call non-emergency contact if: your pain is not controlled, your temperature is above 101.5, your wound has increased redness and your wound has increased drainage Follow-up/Referrals: Guanako Kelley CRNP [Primary Care Provider] - Diet: Regular Addtl Attending Provider Instructions: ACTIVITY RECOMMENDATIONS: SELF CARE INSTRUCTIONS AFTER TOTAL KNEE REPLACEMENT A. You may need to continue a physical therapy program after discharge from the hospital. There are several options available to you. Your doctor will assist you in selecting the best one for you. 1. An out-patient facility 2 to 3 times a week for therapy or home therapy. 2. Continue working on all exercises taught to you in the hospital. Your goals should be to increase bending of your knee to 90 degrees and beyond and to fully straighten your knee. B. You may progress at your own pace from walking with a walker or crutches to a cane; then to no assistive devices. C. Make walking a part of your daily routine. Be up as much as comfortable with rest periods throughout the day. Rest with leg elevation is very important. Use the ice wrap frequently for the first 3-4 weeks. D. There are no restrictions on activities. You may ride in a car, shop, participate in machine set up and all social activities. E. Wear the long elastic stockings (YOSEF hose) 20 hours a day for 2 weeks after surgery. They can be removed several times a day for laundering and for a bath. F. You may shower, no tub baths until cleared by your doctor. SPECIAL CARE INSTRUCTIONS: VERY IMPORTANT TO READ AND REVIEW A. There are a few signs you need to watch for after you are home. Call [facility] if you notice any of the followin. Increased severe knee pain. Some pain is expected especially when you exercise. 2. Increased swelling in your leg or knee; pain or swelling of the calf muscle in either lower leg. 3. Any fluid drainage from the incision. 4. Shortness of breath or chest pain. B. Please call [facility] at if you have any concerns or questions about your operation or recovery. The doctor or his nurse will return your call promptly. C. You must take antibiotics before dental work, bladder, bowel or other surgery. Your doctor will provide you with a permanent care to carry describing this precaution. IMPORTANT: * REMEMBER TO TAKE ASPIRIN, 81 MG, TWICE DAILY FOR 4 WEEKS UNLESS OTHERWISE DIRECTED. THIS IS YOUR BLOOD THINNER. * HIGH RISK PATIENTS MAY BE PRESCRIBED A STRONGER BLOOD THINNER. THIS WILL BE PROVIDED AT DISCHARGE. * CALL IF INCREASED PAIN, REDNESS, DRAINAGE OR FEVER GREATER THAT 101. * WEAR YOSEF HOSE 20 HOURS PER DAY FOR 2 WEEKS. * CAROLINA Dressing- This is a large suction dressing covering your incision. This will help pull any excess drainage from the wound and allow your incision to heal properly. You may shower with this if you can keep the unit outside of the shower. If any bleeding or leakage is noted please call your doctor's office. This will remain on your incision for 7 days and then should be removed. This can be done yourself or by the home nursing staff if applicable. The entire unit is disposable once removed. Once removed, keep incision clean and dry. If redness or drainage is noted, please call your surgeon. IF INCISION IS LEAKING THROUGH DRESSING, CALL THE OFFICE . FOLLOW UP VISIT: If appointment is not already scheduled: Please call [facility] to make a follow-up appointment for 2 weeks after your surgery at . Pending Studies at Discharge: Yes Stand-Alone Forms: My trueAnthem, Smoking Cessation Medications and DC Order Prescriptions: New acetaminophen 500 mg Tablet 1,000 mg PO Q8 21 Days Qty: 126 RF: 0 aspirin 81 mg Tablet,Delayed Release (Dr/Ec) 81 mg PO BID 30 Days Qty: 60 RF: 0 celecoxib [Celebrex] 200 mg Capsule 200 mg PO BID 30 Days Qty: 60 RF: 0 oxycodone 5 mg Tablet 5 - 10 mg PO Q6H PRN (Reason: pain) Qty: 30 RF: 0 docusate sodium 100 mg Capsule 100 mg PO BID 10 Days Qty: 20 RF: 0 cefadroxil 500 mg capsule 500 mg PO BID 10 Days Qty: 20 RF: 0 Continued multivitamin tablet 1 tab PO QAM RF: 0 potassium chloride 10 mEq capsule, extended release 20 meq PO QAM RF: 0 calcium carbonate 600 mg calcium (1,500 mg) tablet 600 mg PO QAM RF: 0 pravastatin 80 mg tablet 80 mg PO QPM RF: 0 metronidazole [MetroCream] 0.75 % cream 1 appln TOP DAILY RF: 0 conjugated estrogens [Premarin] 0.625 mg tablet 0.625 mg PO QAM RF: 0 nitroglycerin 400 mcg/spray spray,non-aerosol 1 sprays Sublingual Q5M PRN (Reason: chest pain) RF: 0 ascorbic acid (vitamin C) 100 mg tablet 100 mg PO QAM RF: 0 omeprazole 20 mg capsule,delayed release(DR/EC) 20 mg PO QAM RF: 0 furosemide [Lasix] 20 mg tablet 20 mg PO QAM RF: 0 albuterol sulfate [Proventil HFA] 90 mcg/actuation HFA aerosol inhaler 1 - 2 puffs INH QID PRN (Reason: SHORT OF BREATH) RF: 0 flaxseed oil-omega 3,6,9 1,300 mg-845 mg -117 mg-117 mg capsule 1 cap PO QAM RF: 0 cyclosporine [Restasis MultiDose] 0.05 % drops 1 drops OPB Q12H RF: 0 gabapentin 300 mg capsule 300 mg PO HS Qty: 90 RF: 1 valsartan [Diovan] 80 mg Tablet 80 mg PO QAM RF: 0 Premarin 0.625 mg/gram Cream 0.625 mg VAGINAL HS RF: 0 triamterene-hydrochlorothiazid [Maxzide-25mg] 37.5-25 mg Tablet 1 tab PO QAM RF: 0 vitamin E 1,000 unit Tablet 1 tab PO QAM RF: 0 metoprolol succinate [Toprol XL] 25 mg Tablet Extended Release 24 Hr 12.5 mg PO HS RF: 0 Discontinued aspirin 81 mg tablet,delayed release (DR/EC) 81 mg PO QPM RF: 0 Discharge Orders: Discharge Order (Routine); Ordered 04/11/20 Ordered By: Eh Toney Admission Data Admit Date/Time: 04/09/20 13:51 Attending Provider: Scotty Funk Admit Provider: Scotty Funk Primary Care Provider: Guanako Kelley Other Providers: Ruel Rivero ; Jo Ann Donovan ; Kwan Anand ; Lemuel Kay ; Desiree Chen ; Scotty Hernandez ; Landon Alvarado ; Paul Fajardo ; Laura King ; Trish Ravi ; Yary Beckett ; Theron Pritchard ; Laina Bhakta ; Lorraine Nino ; Andrea Barth ; Alexandre Hui ; Mya Jarvis ; Jimmy Walker ; Bahman Catalan ; Deanna Loaiza ; Tyrell Dunn ; Shin Livingston ; Kwan Chambers ; Edmund Dodd ; Yumiko Negron ; Kush Staley ; Alireza Enciso ; [facility]
[2020-04-11] MEDS: ASPIRIN 81 MG ECTAB PO SCH ×2 (08:15→22:00)
[2020-04-11] MEDS: TRIAMTERENE/HCTZ 37.5/25MG TAB PO SCH (08:15)
[2020-04-11] MEDS: VALSARTAN 80 MG TAB PO SCH (08:15)
[2020-04-11] MEDS: TOCOPHERYL, DL-ALPHA 400 UNITS CAP PO SCH (08:15)
[2020-04-11] MEDS: CALCIUM CARBONATE 500 MG CHEWABLE TAB PO SCH (08:15)
[2020-04-11] MEDS: MULTIVITAMIN TAB PO SCH (08:16)
[2020-04-11] MEDS: ESTROGENS, CONJUGATED 0.625 MG TAB PO SCH (08:16)
[2020-04-11] MEDS: DOCUSATE SODIUM 100 MG CAP PO SCH ×2 (08:16→21:58)
[2020-04-11] MEDS: FUROSEMIDE 20 MG TAB PO SCH (08:16)
[2020-04-11] MEDS: CeleBREX 200 MG CAP PO SCH ×2 (08:16→21:59)
[2020-04-11] MEDS: ASCORBIC ACID 500 MG TAB PO SCH (08:16)
[2020-04-11] MEDS: POTASSIUM CHLORIDE CRTAB 20 MEQ TABCR PO SCH (08:16)
[2020-04-11] MEDS: oxyCODONE HCL IR 5 MG TAB (IMMEDIATE RELEASE) PO PRN ×2 (11:16→16:13)
[2020-04-11] MEDS: ONDANSETRON INJ 2 MG/ML 2 ML VIAL IV PRN ×2 (11:21→17:54)
[2020-04-11] MEDS: METOCLOPRAMIDE HCL INJ 5 MG/ML 2 ML VIAL IV PRN (16:13)
[2020-04-11] MEDS ORDERED: PROMETHAZINE HCL 6.25 MG in SODIUM CHLORIDE 0.9% 50 ML IV STA (20:00)
[2020-04-11] MEDS: PRAVASTATIN SOD 40 MG TAB PO SCH (21:58)
[2020-04-11] MEDS: GABAPENTIN 300 MG CAP PO SCH (21:59)
[2020-04-11] MEDS: SENNA 8.6 MG TAB PO SCH (21:59)
[2020-04-11] MEDS: METOPROLOL SUCC 25MG EXT REL TAB PO SCH (22:00)
[2020-04-11] MEDS: PREMARIN VAG CRM 14 APPLN/30 GM TUBE PV SCH (22:04)
[2020-04-12] MEDS: oxyCODONE HCL IR 5 MG TAB (IMMEDIATE RELEASE) PO PRN ×2 (00:31→08:26)
[2020-04-12] MEDS: ACETAMINOPHEN 500 MG TAB PO SCH ×3 (05:45→22:10)
[2020-04-12] MEDS: ONDANSETRON INJ 2 MG/ML 2 ML VIAL IV PRN ×2 (08:24→16:45)
[2020-04-12] MEDS: DOCUSATE SODIUM 100 MG CAP PO SCH ×2 (08:27→20:24)
[2020-04-12] MEDS: CALCIUM CARBONATE 500 MG CHEWABLE TAB PO SCH (08:27)
[2020-04-12] MEDS: ASPIRIN 81 MG ECTAB PO SCH ×2 (08:27→20:26)
[2020-04-12] MEDS: ESTROGENS, CONJUGATED 0.625 MG TAB PO SCH (08:27)
[2020-04-12] MEDS: POTASSIUM CHLORIDE CRTAB 20 MEQ TABCR PO SCH (08:27)
[2020-04-12] MEDS: ASCORBIC ACID 500 MG TAB PO SCH (08:27)
[2020-04-12] MEDS: CeleBREX 200 MG CAP PO SCH ×2 (08:27→20:25)
[2020-04-12] MEDS: FUROSEMIDE 20 MG TAB PO SCH (08:27)
[2020-04-12] MEDS: MULTIVITAMIN TAB PO SCH (08:27)
[2020-04-12] MEDS: TRIAMTERENE/HCTZ 37.5/25MG TAB PO SCH (08:27)
[2020-04-12] MEDS: VALSARTAN 80 MG TAB PO SCH (08:27)
[2020-04-12] MEDS: TOCOPHERYL, DL-ALPHA 400 UNITS CAP PO SCH (08:27)
--- NOTE | 2020-04-12 09:36 | Orthopedic Progress Note ---
Date of Service April 12, 2020 Assessment & Plan (1) Status post total right knee replacement: POD #3 s/p Right TKA pt/ot dvt proph with YOSEF/SCD/ASA plan for d/c home with HHPT recheck labs today Admission and Anticipated Discharge Date Admission Date: April 09, 2020 Subjective Pt's dc held yesterday due to PT stating pt unsafe to return home. Ambulated 20'. Sitting in her chair at the bedside. She has had some breakfast. No BM as of yet. Has MOM that she needs to take this AM. Denies Abd pain/discomfort. Was passing gas yesterday. A little less today. No other complaints. Physical Exam Physical Exam: Colleen Dressing intact with scant drainage noted. Calves soft, NT. NV intact. Toes mobile. Results & Data ([facility]) Vital Signs (Past 12 Hours) Vital Signs Temp Pulse Pulse Resp BP Pulse Ox 04/12/20 07:48 36.8 C 68 16 112/70 96 04/11/20 23:10 36.8 C 76 17 149/73 H 99 04/11/20 21:56 74 170/70 H
[2020-04-12] MEDS ORDERED: POLYETHYLENE (MIRALAX) 17 GM PACK PO PRN (09:38)
[2020-04-12 10:22] LABS: Hematocrit (blood only) 28.6 % (37-47); Hemoglobin 9.6 g/dL (12.0-16.0); Mean Corpuscular Hemoglobin 29.9 pg (25-34); Mean Corpuscular Hgb Conc 33.6 g/dL (32-36); Mean Corpuscular Volume 89.1 fL (80-100); Mean Platelet Volume 9.7 fL (7.4-10.4); Platelet Count 298 K/uL (130-400); RDW Coefficient of Variation 13.3 % (11.5-14.5); RDW Standard Deviation 43.2 fL (36.4-46.3); Red Blood Count 3.21 M/uL (4.2-5.4); White Blood Count 8.07 K/uL (4.8-10.8)
[2020-04-12 11:00] LABS: BUN Creatinine Ratio 20.3 (10-20); Calcium 8.4 mg/dl (8.5-10.1); Est GFR (African American) 76.1; Est GFR (Non-African American) 65.6; Potassium 4.1 mmol/L (3.5-5.1)
[2020-04-12] MEDS ORDERED: HYDROmorphone INJ 1 MG/ML SYRINGE IV PRN (12:43)
--- NOTE | 2020-04-12 12:51 | Hospitalist Consultation ---
Date of Consultation April 12, 2020 Assessment & Plan (1) Lethargy: Multifactorial- likely cause for this morning's reported lethargy is polypharmacy and acute delirium aspect this morning. - Discontinued some of the patient's narcotics, Ortho may re-introduce slowly and at lower levels to achieve optimal pain control - Still feels hung over from anesthesia effect, so again slow re-introduction - Acid base review from BMP normal - TSH random - Cortisol random pending - Sleep hygiene strongly recommended through PM- Patient is up and out of bed and briskly awake and her recall is accurate on my interview EKG repeated with normal rate and response of DDDR pacemaker. (2) Hyponatremia: Multifactorial causes-- - Serum and urine OSMO pending--- expect urine osmo to be <300 - Cortisol and TSH as above - Mild hyponatremia at 130 with hypochloremia- likely worsened with diuretics - Stop diuretics for 24 hours, if needed for BP control would lean towards lasix going home and hold HCTZ - Serum OSMO- 278--> Gently add back some intravascular volume with LR at 80 ML, as perceived the patient should rise once the intravascular volume is corrected - This is also complicated by the patient with constipation vs delayed gastric emptying ----> PEG may make hyponatremia worse as well. - Free water restrict for next 24-48 hours, patient volume intake consist of 1-2 liters of free water and tea with meals. - supplement drinks for comfort with gingerale and/or juice, as this will yield less free water intake. BMP q 4 hours. Stop LR when NA 135 (3) Hypocalcemia: Likely related to intake and constipation - Replace 2 GM Calcium gluconate - This will add 50 ml saline to the patient. Follow BMP. (4) Constipation: KUB pending- - likely component with shifting water and sodium, also noted with hypocalcemia - Continue agents avoid osmotic agent if able. - Vomiting has subsided however if patient is obstipated--- NGT - Increase MOM recommended and may consider lactulose if needed--- lactulose will increase serum NA. (5) CAD (coronary artery disease): - Follows with [facility] as outpt with Dr. Cunningham - Continue asa 81 mg, , metoprolol succinate 12.5 mg daily, ARB - ARB may contribute to Hyponatremia at times, but patient has been on this for a while. Follow (6) HTN (hypertension): - Although patient took medications today hold diuretics for 24 hours - If BP control is needed consider adding hydralazine or amlodipine IR for short tearm (7) Status post total right knee replacement: - Pain management, bowel regimen and DVT ppx with ASA 81 mg BID per the primary team. - Continue to progress with PT and OT (8) Peripheral neuropathy: - Gabapentin on hold-- can make hyponatremia worse. Patient has been on this dose for quite a while as well. This is low dose and likely not contributing too much, however want to avoid continuing lowering sodium levels. Supervising Physician Co-Signing Physician Notes [employer]NOCKDOWN MAN Supervision note: I have personally seen and examined the patient and discussed and verified the suazo points of the history and physical along with the plan with SYLVIA Hui with the following exceptions and/or additions: Pt with lethargy likely related to opioid use. ALso with mild hyponatremia could be related to hypovolemia and diuretic use. Holding diuretics and giving LR, following serial labs. Recommend decreasing oxycodone dose to 5mg only as she has been getting 10mg dosing consistently. Follow History of Present Illness Attending Physician: Scotty Funk, DO History of Present Illness 79 YOF that is POD #3 right total knee. Hospitalist team was consulted today for concerns of lethargy this morning as well as hyponatremia. The patient's post-op course has been normal appearing, but delayed with nausea with vomiting yesterday, decrease in bowel movements/emptying, and fatigue. Patient was going to go home today but per review and talking with the patient, she is more fatigued feeling and sluggish. The patient history has been reviewed. She has been able to get up and ambulate in the room by herself and "feels like she has to use more energy" to get around. She denies any further symptoms of dyspnea or chest pain. Her nausea and vomiting has subsided today and she has kept down a full breakfast and is getting ready to eat lunch now. She feels that the MOM she received this morning may be about to work. Her pain has been well controlled and she is comfortable. Allergies Allergy/AdvReac Type Severity Reaction Status Date / Time adhesive Allergy Mild rash from Verified 04/09/20 09:20 tape, EKG electrode leads balsam jose r Allergy Mild rash Verified 04/09/20 09:20 hydroquinone Allergy Unknown unknown Verified 04/09/20 09:20 reaction, "told communications advisor by sand mill grinder" thimerosal Allergy Unknown cobalt Verified 04/09/20 09:20 dichloride thimerosal contact solution- itching codeine AdvReac Mild N/V Verified 04/09/20 09:20 Home Medications Medication Instructions Recorded Confirmed Type albuterol sulfate 90 mcg/actuation 1 - 2 puffs INH QID PRN 12/14/17 04/09/20 History aerosol inhaler ascorbic acid (vitamin C) 100 mg 100 mg PO QAM 12/14/17 04/09/20 History tablet calcium carbonate 600 mg calcium 600 mg PO QAM tab 12/14/17 04/09/20 History (1,500 mg) tablet conjugated estrogens 0.625 mg 0.625 mg PO QAM 12/14/17 04/09/20 History tablet cyclosporine 0.05 % eye drops 1 drops OPB Q12H 12/14/17 04/09/20 History flaxseed oil 1,300 mg-omega 3,6,9 1 cap PO QAM cap 12/14/17 04/09/20 History 845 mg-117 mg-117 mg capsule furosemide 20 mg tablet 20 mg PO QAM 12/14/17 04/09/20 History metronidazole 0.75 % topical cream 1 appln TOP DAILY gm 12/14/17 04/09/20 History multivitamin 1 tab PO QAM 12/14/17 04/09/20 History nitroglycerin 400 mcg/spray 1 sprays SUBLINGUAL Q5M PRN gm 12/14/17 04/09/20 History translingual omeprazole 20 mg capsule,delayed 20 mg PO QAM 12/14/17 04/09/20 History release potassium chloride 10 mEq 20 meq PO QAM 12/14/17 04/09/20 History capsule,extended release pravastatin 80 mg tablet 80 mg PO QPM 12/14/17 04/09/20 History gabapentin 300 mg capsule 300 mg PO HS #90 cap 07/21/18 04/09/20 Rx Premarin 0.625 mg VAGINAL HS 12/26/19 04/09/20 History triamterene-hydrochlorothiazid 1 tab PO QAM 12/26/19 04/09/20 History [Maxzide-25mg] valsartan [Diovan] 80 mg PO QAM 12/26/19 04/09/20 History vitamin E 1 tab PO QAM 12/26/19 04/09/20 History metoprolol succinate [Toprol XL] 12.5 mg PO HS 01/29/20 04/09/20 History acetaminophen 1,000 mg PO Q8 21 Days #126 tab 04/11/20 Rx aspirin 81 mg PO BID 30 Days #60 tab 04/11/20 Rx cefadroxil 500 mg PO BID 10 Days #20 cap 04/11/20 Rx celecoxib [Celebrex] 200 mg PO BID 30 Days #60 cap 04/11/20 Rx docusate sodium 100 mg PO BID 10 Days #20 cap 04/11/20 Rx oxycodone 5 - 10 mg PO Q6H PRN #30 tab 04/11/20 Rx Patient History Medical History (Updated 04/12/20 @ 13:44 by SYLVIA Flores) Anemia Asthma stable Benign thyroid cyst CAD (coronary artery disease) non-obstructive DJD (degenerative joint disease) Dyslipidemia Fatty liver GERD (gastroesophageal reflux disease) controlled History of diverticulitis HTN (hypertension) Lumbar spinal stenosis Osteoarthritis 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, follows with [facility] [place] Peripheral neuropathy Surgical History (Updated 04/09/20 @ 16:08 by Yary Beckett PA-C) History of bunionectomy Left foot History of cardiac cath many years ago History of cataract surgery R/L History of colonoscopy History of tonsillectomy and adenoidectomy History of tooth extraction Hx of appendectomy Hx of breast biopsy Hx of cholecystectomy Hx of hysterectomy Family History Mother Family history of diabetes mellitus Brother Family history of diabetes mellitus Social History Smoking Status: Never smoker Second Hand Exposure: Yes (IN THE PAST); Hx Alcohol Use: Yes Preferred Language: Djiboutian Communication Ability: Effective Vasc Tech Required: No Beliefs That Will Affect Care: None marital status: Current Living Situation: Spouse Feels Safe at Home: Yes Safety Concerns: Feels Safe At This Time Assistive Devices: Walker Review of Systems Review of Systems: REVIEW OF SYSTEMS: Constitutional: No fever, sweats or chills EyeConstitutional: No fever, sweats or chills Eyes: No diplopia, no worsening or blurred vision ENT: normal hearing, no trouble swallowing Respiratory: No cough, sputum, dyspnea at rest or on exertion Cardiovascular: No chest pain, tightness or palpitations Abdomen: (+) Nausea, vommitting, constipation, No pain, Musculoskeletal: (+) chronic back, knee and hip pain, no swelling. Neurologic: No weakness, numbness/tingling, or balance problems Psychiatric: No anxiety or depression Skin: No rash or itch Physical Exam Physical Exam: PHYSICAL EXAM: General: briskly awake, alert, no apparent distress Head: Normocephalic, atraumatic ENT: PERRLA, EOMI, no pharyngeal exudate, mucous membranes moist Neuro: AAO x 3, speech clear and appropriate, strength intact bilaterally 5/5, sensation intact and equal all extremities, no pronator drift Chest: equal rise and fall of the chest, no accessory muscle use, no heaves or thrills, Clear to auscultation, on room air Cardiac: Regular rate and rhythm, DDR pacer ECG reviewed and appropriate rate with appropriate sensing and firing, skin warm dry, cap refill <3 seconds, peripheral pusles, no murmur, no JVD, trace lower extremity edema GI: hypoactive bowel sounds 4 quadrants, soft mildly distended, nontender to palpation, no rebound, guarding or tenderness : Spontaneously voiding, no pain, no CVA tenderness, Extremities: Normal inspection, no erythema, calfs nontender to palpation, bruising noted from peripheral blood draws Psych: Normal mood and affect Skin: no rash or erythema Results & Data Results & Data ([facility]) Vital Signs (Past 12 Hours) Vital Signs Temp Pulse Resp BP Pulse Ox 04/12/20 07:48 36.8 C 68 16 112/70 96 Laboratory Results Abnormal lab results 04/12/20 04/12/20 04/12/20 Range/Units 10:00 10:00 12:27 RBC 3.21 L (4.2-5.4) M/uL Hgb 9.6 L (12.0-16.0) g/dL Hct 28.6 L (37-47) % Sodium 130 L (136-145) mmol/L Chloride 97 L (98-107) mmol/L BUN/Creatinine Ratio 20.3 H (10-20) Glucose 107 H (70-99) mg/dl Osmolality 278 L (280-300) mOsm/kg Calcium 8.4 L (8.5-10.1) mg/dl Diagnostic Findings KUB pending ECG pending Medications Administered Acetaminophen (Acetaminophen 500 Mg Tab) 1,000 mg PO Q8 [facility] Stop: 05/09/20 15:45 Last Admin: 04/12/20 05:45 Dose: 1,000 mg Documented by: [id number] Admin: 04/11/20 21:58 Dose: 1,000 mg Documented by: [id number] Admin: 04/11/20 14:00 Dose: 1,000 mg Documented by: [id number] Admin: 04/11/20 06:04 Dose: 1,000 mg Documented by: [id number] Admin: 04/10/20 22:00 Dose: 1,000 mg Documented by: [id number] Admin: 04/10/20 14:11 Dose: 1,000 mg Documented by: [id number] Admin: 04/10/20 06:21 Dose: 1,000 mg Documented by: [id number] Admin: 04/09/20 22:30 Dose: 1,000 mg Documented by: [id number] Admin: 04/09/20 17:46 Dose: 1,000 mg Documented by: [id number] Ascorbic Acid (Ascorbic Acid 500 Mg Tab) 500 mg PO QAM [facility] Stop: 05/10/20 08:59 Last Admin: 04/12/20 08:27 Dose: 500 mg Documented by: [id number] Admin: 04/11/20 08:16 Dose: 500 mg Documented by: [id number] Admin: 04/10/20 08:50 Dose: 500 mg Documented by: [id number] Aspirin (Aspirin 81 Mg Ectab) 81 mg PO BID [facility] Stop: 05/09/20 20:59 Last Admin: 04/12/20 08:27 Dose: 81 mg Documented by: [id number] Admin: 04/11/20 22:00 Dose: 81 mg Documented by: [id number] Admin: 04/11/20 08:15 Dose: 81 mg Documented by: [id number] Admin: 04/10/20 21:55 Dose: 81 mg Documented by: [id number] Admin: 04/10/20 08:49 Dose: 81 mg Documented by: [id number] Admin: 04/09/20 20:33 Dose: 81 mg Documented by: [id number] Calcium Carbonate (Calcium Carbonate 500 Mg Chewable Tab) 500 mg PO QAM [facility] Stop: 05/10/20 08:59 Last Admin: 04/12/20 08:27 Dose: 500 mg Documented by: [id number] Admin: 04/11/20 08:15 Dose: 500 mg Documented by: [id number] Admin: 04/10/20 08:51 Dose: 500 mg Documented by: [id number] Celecoxib (Celebrex 200 Mg Cap) 200 mg PO BID [facility] Stop: 05/10/20 20:59 Last Admin: 04/12/20 08:27 Dose: 200 mg Documented by: [id number] Admin: 04/11/20 21:59 Dose: 200 mg Documented by: [id number] Admin: 04/11/20 08:16 Dose: 200 mg Documented by: [id number] Admin: 04/10/20 21:56 Dose: 200 mg Documented by: [id number] Docusate Sodium (Docusate Sodium 100 Mg Cap) 100 mg PO BID [facility] Stop: 05/09/20 20:59 Last Admin: 04/12/20 08:27 Dose: 100 mg Documented by: [id number] Admin: 04/11/20 21:58 Dose: 100 mg Documented by: [id number] Admin: 04/11/20 08:16 Dose: 100 mg Documented by: [id number] Admin: 04/10/20 21:56 Dose: 100 mg Documented by: [id number] Admin: 04/10/20 08:48 Dose: 100 mg Documented by: [id number] Admin: 04/09/20 20:33 Dose: 100 mg Documented by: [id number] Estrogens Conjugated (Estrogens, Conjugated 0.625 Mg Tab) 0.625 mg PO QAM [facility] Stop: 05/10/20 08:59 Last Admin: 04/12/20 08:27 Dose: 0.625 mg Documented by: [id number] Admin: 04/11/20 08:16 Dose: 0.625 mg Documented by: [id number] Admin: 04/10/20 08:50 Dose: 0.625 mg Documented by: [id number] Estrogens Conjugated (Premarin Vag Crm 14 Appln/30 Gm Tube) 1 appln PV HS [facility] Stop: 05/09/20 20:59 Last Admin: 04/11/20 22:04 Dose: 1 appln Documented by: [id number] Admin: 04/10/20 21:53 Dose: Not Given Documented by: [id number] Admin: 04/09/20 22:36 Dose: 1 appln Documented by: [id number] Magnesium Hydroxide (Magnesium Hydroxide Susp 30 Ml Udc) 30 ml PO Q6H PRN PRN Reason: Constipation Stop: 05/09/20 15:45 Last Admin: 04/12/20 08:24 Dose: 30 ml Documented by: [id number] Metoclopramide HCl (Metoclopramide Hcl Inj 5 Mg/Ml 2 Ml Vial) 10 mg IV Q6H PRN PRN Reason: Nausea And Vomiting Stop: 05/09/20 15:45 Last Admin: 04/11/20 16:13 Dose: 10 mg Documented by: [id number] Admin: 04/10/20 20:05 Dose: 10 mg Documented by: [id number] Metoprolol Succinate (Metoprolol Succ 25mg Ext Rel Tab) 12.5 mg PO [facility] Stop: 05/09/20 20:59 Last Admin: 04/11/20 22:00 Dose: 12.5 mg Documented by: [id number] Admin: 04/10/20 21:58 Dose: 12.5 mg Documented by: [id number] Admin: 04/09/20 20:32 Dose: 12.5 mg Documented by: [id number] Miscellaneous (Restasis: Order Awaiting Action) 1 ea N/A QS [facility] Stop: 05/10/20 00:00 Last Admin: 04/12/20 06:52 Dose: Not Given Documented by: [id number] Admin: 04/11/20 23:02 Dose: Not Given Documented by: [id number] Admin: 04/11/20 15:20 Dose: Not Given Documented by: [id number] Admin: 04/11/20 07:03 Dose: Not Given Documented by: [id number] Admin: 04/10/20 22:49 Dose: Not Given Documented by: [id number] Admin: 04/10/20 16:14 Dose: Not Given Documented by: [id number] Admin: 04/10/20 08:49 Dose: Not Given Documented by: [id number] Admin: 04/10/20 00:51 Dose: Not Given Documented by: [id number] Miscellaneous ([place]: Order Awaiting Action) 1 ea N/A QS [facility] Stop: 05/10/20 00:00 Last Admin: 04/12/20 06:51 Dose: Not Given Documented by: [id number] Admin: 04/11/20 23:02 Dose: Not Given Documented by: [id number] Admin: 04/11/20 15:20 Dose: Not Given Documented by: [id number] Admin: 04/11/20 07:02 Dose: Not Given Documented by: [id number] Admin: 04/10/20 22:48 Dose: Not Given Documented by: [id number] Admin: 04/10/20 16:14 Dose: Not Given Documented by: [id number] Admin: 04/10/20 08:49 Dose: Not Given Documented by: [id number] Admin: 04/10/20 00:51 Dose: Not Given Documented by: [id number] Multivitamins (Multivitamin Tab) 1 tab PO QAM [facility] Stop: 05/10/20 08:59 Last Admin: 04/12/20 08:27 Dose: 1 tab Documented by: [id number] Admin: 04/11/20 08:16 Dose: 1 tab Documented by: [id number] Admin: 04/10/20 08:51 Dose: 1 tab Documented by: [id number] Ondansetron HCl (Ondansetron Inj 2 Mg/Ml 2 Ml Vial) 4 mg IV Q6H PRN PRN Reason: Nausea And Vomiting Stop: 05/09/20 15:45 Last Admin: 04/12/20 08:24 Dose: 4 mg Documented by: [id number] Admin: 04/11/20 17:54 Dose: 4 mg Documented by: [id number] Admin: 04/11/20 11:21 Dose: 4 mg Documented by: [id number] Admin: 04/10/20 19:18 Dose: 4 mg Documented by: [id number] Admin: 04/10/20 04:20 Dose: 4 mg Documented by: [id number] Oxycodone HCl (Oxycodone Hcl Ir 5 Mg Tab (Immediate Release)) 5 - 10 mg PO Q4H PRN PRN Reason: Pain or Pre PT Stop: 04/23/20 15:45 Last Admin: 04/12/20 08:26 Dose: 10 mg Documented by: [id number] Admin: 04/12/20 00:31 Dose: 10 mg Documented by: [id number] Admin: 04/11/20 16:13 Dose: 10 mg Documented by: [id number] Admin: 04/11/20 11:16 Dose: 10 mg Documented by: [id number] Admin: 04/10/20 17:08 Dose: 10 mg Documented by: [id number] Admin: 04/10/20 08:56 Dose: 5 mg Documented by: [id number] Admin: 04/10/20 01:52 Dose: 5 mg Documented by: [id number] Admin: 04/10/20 00:51 Dose: 5 mg Documented by: [id number] Admin: 04/09/20 20:31 Dose: 5 mg Documented by: [id number] Potassium Chloride (Potassium Chloride Crtab 20 Meq Tabcr) 20 meq PO QAM [facility] Stop: 05/10/20 08:59 Last Admin: 04/12/20 08:27 Dose: 20 meq Documented by: [id number] Admin: 04/11/20 08:16 Dose: 20 meq Documented by: [id number] Admin: 04/10/20 08:49 Dose: 20 meq Documented by: [id number] Pravastatin Sodium (Pravastatin Sod 40 Mg Tab) 80 mg PO QPM [facility] Stop: 05/09/20 20:59 Last Admin: 04/11/20 21:58 Dose: 80 mg Documented by: [id number] Admin: 04/10/20 21:57 Dose: 80 mg Documented by: [id number] Admin: 04/09/20 20:32 Dose: 80 mg Documented by: [id number] Sennosides (Senna 8.6 Mg Tab) 17.2 mg PO HS [facility] Stop: 05/09/20 20:59 Last Admin: 04/11/20 21:59 Dose: 17.2 mg Documented by: [id number] Admin: 04/10/20 21:56 Dose: 17.2 mg Documented by: [id number] Admin: 04/09/20 20:33 Dose: 17.2 mg Documented by: [id number] Valsartan (Valsartan 80 Mg Tab) 80 mg PO QAM [facility] Stop: 05/10/20 08:59 Last Admin: 04/12/20 08:27 Dose: 80 mg Documented by: [id number] Admin: 04/11/20 08:15 Dose: 80 mg Documented by: [id number] Admin: 04/10/20 08:48 Dose: 80 mg Documented by: [id number] Vitamin E (Tocopheryl, Dl-Alpha 400 Units Cap) 800 units PO QAM [facility] Stop: 05/10/20 08:59 Last Admin: 04/12/20 08:27 Dose: 800 units Documented by: [id number] Admin: 04/11/20 08:15 Dose: 800 units Documented by: [id number] Admin: 04/10/20 08:51 Dose: 800 units Documented by: [id number] Discontinued Medications Acetaminophen (Acetaminophen 500 Mg Tab) 1,000 mg PO PREOP [facility] Stop: 04/09/20 18:00 Last Admin: 04/09/20 09:36 Dose: 1,000 mg Documented by: [id number] Bacitracin (Bacitracin Inj 50,000 Unit Vial) Confirm Administered Dose 50,000 units .ROUTE .[facility] Stop: 04/09/20 10:50 Last Admin: 04/09/20 12:26 Dose: 50,000 units Documented by: [id number] Celecoxib (Celebrex 200 Mg Cap) 200 mg PO PREOP [facility] Stop: 04/09/20 18:00 Last Admin: 04/09/20 09:35 Dose: 200 mg Documented by: [id number] Dexamethasone (Dexamethasone 4 Mg Tab) 8 mg PO PREOP [facility] Stop: 04/09/20 18:00 Last Admin: 04/09/20 09:35 Dose: 8 mg Documented by: [id number] Famotidine (Famotidine 20 Mg Tab) 20 mg PO PREOP [facility] Stop: 04/09/20 18:00 Last Admin: 04/09/20 09:35 Dose: 20 mg Documented by: [id number] Furosemide (Furosemide 20 Mg Tab) 20 mg PO DAILY [facility] Stop: 05/10/20 08:59 Last Admin: 04/12/20 08:27 Dose: 20 mg Documented by: [id number] Admin: 04/11/20 08:16 Dose: 20 mg Documented by: [id number] Admin: 04/10/20 08:56 Dose: 20 mg Documented by: [id number] Gabapentin (Gabapentin 300 Mg Cap) 300 mg PO PREOP [facility] Stop: 04/09/20 18:00 Last Admin: 04/09/20 09:35 Dose: 300 mg Documented by: [id number] Gabapentin (Gabapentin 300 Mg Cap) 300 mg PO [facility] Stop: 05/09/20 20:59 Last Admin: 04/11/20 21:59 Dose: 300 mg Documented by: [id number] Admin: 04/10/20 21:55 Dose: 300 mg Documented by: [id number] Admin: 04/09/20 20:34 Dose: 300 mg Metoclopramide HCl (Metoclopramide Hcl 10 Mg Tablet) 10 mg PO PREOP [facility] Stop: 04/09/20 18:00 Last Admin: 04/09/20 09:35 Dose: 10 mg Triamterene/Hydrochlorothiazide (Triamterene/Hctz 37.5/25mg Tab) 1 tab PO DAILY [facility] Stop: 05/10/20 08:59 Last Admin: 04/12/20 08:27 Dose: 1 tab Documented by: [id number] Admin: 04/11/20 08:15 Dose: 1 tab Documented by: [id number] Admin: 04/10/20 08:56 Dose: 1 tab Documented by: [id number] PG Care Time/CCT Total # of Minutes Spent Total Time Spent with Patient: Total time spent is greater than 50% in coordination of care (as documented) at patient's floor/unit and/or counseling patient: Coding Level of Care Code 15135 Inpt Consult Level 3 Diagnoses Lethargy R53.83 Hyponatremia E87.1 Hypocalcemia E83.51 Constipation K59.03 Constipation type: drug induced constipation CAD (coronary artery disease) I25.10 HTN (hypertension) I10 Hypertension type: essential hypertension Status post total right knee replacement Z96.651 Peripheral neuropathy G62.81 (1) Peripheral neuropathy Qualified Code(s): G62.81 - Critical illness polyneuropathy (2) HTN (hypertension) Hypertension type: essential hypertension Qualified Code(s): I10 - Essential (primary) hypertension (3) Constipation Constipation type: drug induced constipation Qualified Code(s): K59.03 - Drug induced constipation
[2020-04-12] MEDS ORDERED: LACTATED RINGER'S 1,000 ML IV ONE (12:53)
--- NOTE | 2020-04-12 13:50 | XRay Report ---
KUB HISTORY: Hypoactive bowel sounds, nausea, no bowel movement since 04/08 COMPARISON: None. FINDINGS: The bowel gas pattern is unremarkable. There are no dilated loops of small bowel to suggest an obstruction. No renal calculi. No ureteral calculi. No pneumoperitoneum or pneumatosis. Moderate well-formed stool seen within the descending colon, sigmoid colon, and rectum. Severe osteoarthritis within the left hip with [id number] articulation. Mild levoscoliosis of the lumbar spine. Suture m aterial within the right upper quadrant. Pacemaker wires are noted. The lung bases are clear. IMPRESSION: 1. No evidence for bowel obstruction. 2. Moderate well-formed stool seen within the colon and rectum. 3. Severe osteoarthritis within the left hip. ACT 112: Negative or not required by law. Electronically signed by: Cade Martínez M.D. 04/12/2020 1:49 PM
[2020-04-12] MEDS ORDERED: CALCIUM GLUCONATE 10% 2,000 MG in SODIUM CHLORIDE 0.9% 50 ML IV ONE (14:30)
[2020-04-12 14:44] LABS: BUN Creatinine Ratio 20.8 (10-20); Calcium 9.2 mg/dl (8.5-10.1); Creatinine Clr Calc Pharmacy 38.2 ml/min; Est GFR (Non-African American) 60.4; Potassium 4.3 mmol/L (3.5-5.1)
--- NOTE | 2020-04-12 17:59 | Electrocardiogram Report ---
Test Reason : Blood Pressure : / mmHG Vent. Rate : 074 BPM Atrial Rate : 074 BPM P-R Int : 158 ms QRS Dur : 086 ms QT Int : 388 ms P-R-T Axes : 074 -06 013 degrees QTc Int : 430 ms Atrial-sensed ventricular-paced rhythm Abnormal ECG When compared with ECG of 01-JAN-2020 10:22, Vent. rate has increased BY 8 BPM Confirmed by Freedom Jones ([id number]) on 04/12/2020 5:59:41 PM Referred By: Scotty Funk Confirmed By:Freedom Jones
[2020-04-12 18:14] LABS: Calcium 9.9 mg/dl (8.5-10.1); Creatinine Clr Calc Pharmacy 38.2 ml/min; Est GFR (Non-African American) 60.4; Potassium 4.6 mmol/L (3.5-5.1)
--- NOTE | 2020-04-12 18:17 | Electrocardiogram Report ---
Test Reason : Blood Pressure : / mmHG Vent. Rate : 073 BPM Atrial Rate : 073 BPM P-R Int : 146 ms QRS Dur : 084 ms QT Int : 388 ms P-R-T Axes : 053 -11 019 degrees QTc Int : 427 ms Atrial-sensed ventricular-paced rhythm Abnormal ECG When compared with ECG of 11-APR-2020 20:33, (unconfirmed) No significant change was found Confirmed by Freedom Jones ([id number]) on 04/12/2020 6:17:22 PM Referred By: Scotty Funk Confirmed By:Freedom Jones
[2020-04-12] MEDS: METOPROLOL SUCC 25MG EXT REL TAB PO SCH (20:23)
[2020-04-12] MEDS: SENNA 8.6 MG TAB PO SCH (20:24)
[2020-04-12] MEDS: PREMARIN VAG CRM 14 APPLN/30 GM TUBE PV SCH (20:24)
[2020-04-12] MEDS: PRAVASTATIN SOD 40 MG TAB PO SCH (20:26)
[2020-04-12 22:25] LABS: BUN Creatinine Ratio 21.2 (10-20); Calcium 9.9 mg/dl (8.5-10.1); Creatinine Clr Calc Pharmacy 41.5 ml/min; Est GFR (African American) 77.2; Est GFR (Non-African American) 66.6; Potassium 4.9 mmol/L (3.5-5.1)
[2020-04-13] MEDS ORDERED: SIMETHICONE 80 MG CHEW PO PRN (01:39)
[2020-04-13 02:30] LABS: BUN Creatinine Ratio 20.4 (10-20); Calcium 9.5 mg/dl (8.5-10.1); Creatinine Clr Calc Pharmacy 42.5 ml/min; Est GFR (African American) 79.5; Est GFR (Non-African American) 68.6; Potassium 4.5 mmol/L (3.5-5.1)
[2020-04-13] MEDS: ACETAMINOPHEN 500 MG TAB PO SCH ×3 (05:20→22:36)
[2020-04-13 06:42] LABS: BUN Creatinine Ratio 22.8 (10-20); Calcium 8.8 mg/dl (8.5-10.1); Creatinine Clr Calc Pharmacy 46.5 ml/min; Est GFR (African American) 88.7; Est GFR (Non-African American) 76.5; Potassium 4.4 mmol/L (3.5-5.1)
[2020-04-13] MEDS: ASPIRIN 81 MG ECTAB PO SCH ×2 (08:29→20:36)
[2020-04-13] MEDS: DOCUSATE SODIUM 100 MG CAP PO SCH ×2 (08:30→20:38)
[2020-04-13] MEDS: MULTIVITAMIN TAB PO SCH (08:30)
[2020-04-13] MEDS: ASCORBIC ACID 500 MG TAB PO SCH (08:31)
[2020-04-13] MEDS: ESTROGENS, CONJUGATED 0.625 MG TAB PO SCH (08:31)
[2020-04-13] MEDS: VALSARTAN 80 MG TAB PO SCH (08:31)
[2020-04-13] MEDS: TOCOPHERYL, DL-ALPHA 400 UNITS CAP PO SCH (08:32)
[2020-04-13] MEDS: CALCIUM CARBONATE 500 MG CHEWABLE TAB PO SCH (08:32)
[2020-04-13] MEDS: CeleBREX 200 MG CAP PO SCH ×2 (08:33→20:37)
--- NOTE | 2020-04-13 09:09 | Orthopedic Progress Note ---
Date of Service April 13, 2020 Assessment & Plan (1) Status post total right knee replacement: POD #4 s/p Right TKA pt/ot dvt proph with YOSEF/SCD/ASA am labs-sodium levels remain low, at 131 this morning. plan for d/c home with HHPT when stable. Will see how she does today As per medicine Admission and Anticipated Discharge Date Admission Date: April 12, 2020 Subjective Patient has been feeling lethargic. States feels somewhat improved today but still appears to be lethargic. No complaints of chest pain, sob, n/v/d. Pain controlled Review of Systems Review of Systems: All systems reviewed & are unremarkable except as noted in HPI & below Physical Exam Physical Exam: Right knee CAROLINA dressing is c/d/i. Toes mobile with good dorsiflexion. No calf tenderness, calf soft. Distally n/v status and sensation intact. Constitutional: well developed, well nourished and + ill appearing Results & Data ([facility]) Vital Signs (Past 12 Hours) Vital Signs Temp Pulse Pulse Resp BP Pulse Ox 04/13/20 07:11 36.5 C 79 18 129/76 98 04/12/20 23:17 36.7 C 70 14 128/68 99
--- NOTE | 2020-04-13 13:54 | Hospitalist Progress Note ---
Date of Service April 13, 2020 Assessment & Plan (1) Lethargy: Multifactorial- likely cause is opioid use, hyponatremia - Discontinued some of the patient's narcotics, pain is controlled - Acid base review from BMP normal - TSH elevated at 7, ordered FT4 for in AM - Cortisol random 15 and acceptable - Sleep hygiene strongly recommended EKG repeated with normal rate and response of DDDR pacemaker. Improved today but still with nausea and fatigue, but mentating (2) Hyponatremia: Na+ 130. COuld be secondary to poor po intake, low solute diet, in setting of continued HCTZ and lasix use - Cortisol acceptable, TSH elevated and FT4 pending -had 1 L of LR and only up to 131 Serum Osm 278, Urine Osm 220 although was on diuretics when drawn -could be SIADH component due to pain, nausea, gabapentin -add 1L NS now over 10 hours -encouraged liberal salt in diet -get bowels moving more and improve nausea -follow BMP in AM -continue to hold HCTZ and lasix (3) Hypocalcemia: Likely related to intake and constipation - Replaced 2 GM Calcium gluconate and normalized (4) Constipation: KUB nonobstructive but with stool - likely component with shifting water and sodium, also noted with hypocalcemia - Continue agents avoid osmotic agent if able. - Vomiting has subsided -give prune juice today -avoid opioids bisacodyl suppos caused small liquid BM but terrible abd cramps -trisal of lactulose if needed--- lactulose will increase serum NA+ (5) CAD (coronary artery disease): - Follows with [facility] as outpt with Dr. Cunningham - Continue asa 81 mg, , metoprolol succinate 12.5 mg daily, ARB - ARB may contribute to Hyponatremia at times, but patient has been on this for a while. Follow (6) HTN (hypertension): -BPs controlled despite being off Dyazide and lasix -continue metoprolol and valsartan - If BP not controlled, could consider adding hydralazine or amlodipine IR for short term (7) Status post total right knee replacement: - Pain management, bowel regimen and DVT ppx with ASA 81 mg BID per the primary team. - Continue to progress with PT and OT (8) Peripheral neuropathy: - Gabapentin on hold-- can make hyponatremia worse. Patient has been on this dose for quite a while as well. This is low dose and likely not contributing too much, however want to avoid continuing lowering sodium levels. (9) Nausea: as above, secondary to opioids, constipation, hyponatremia perhaps, and pain antiemetics, bowel regimen also has not been getting her usual PPI-restart now (10) Pacemaker: noted (11) Dyslipidemia: continue statin (12) GERD (gastroesophageal reflux disease): has not been receiving her usual PPI-restart now (13) Asthma: no acute issues (14) Abnormal TSH: as above f/u FT4 in AM (15) DVT prophylaxis: ASA bid, SCDs Dispo-continued stay recommended, Hospitalist service will follow along Admission and Anticipated Discharge Date Admission Date: April 12, 2020 Subjective Pt still feels wiped out, some mild nausea. Had a small liquid BM last evening and then was having a lot of abd cramping through th enight which is now resolved. Is drinking small amounts of tea and water, only ate a few bites for lunch. No headache, no chest pain or SOB. Pain in knee controlled Review of Systems Review of Systems: All systems reviewed & are unremarkable except as noted in HPI & below Physical Exam Constitutional: WD/WN, vitals as above Eyes: + eyelid abnormality (chronic OD ptosis) and + anicteric sclerae ENMT: external ear and nose normal, oropharynx normal Neck: trachea midline, no thyromegaly Respiratory: normal respiratory effort, lungs clear to auscultation Cardiovascular: RRR, no murmur, no edema Chest (Breasts): Chest: normal inspection of chest Gastrointestinal (Abdomen): normal bowel sounds, soft, nontender, no hepatosplenomegaly Musculoskeletal: Extremities: + extremities abnormal to inspection (R knee with dressing in place, drain), no cyanosis and no clubbing Skin: no rashes, warm and dry Neurologic: moves all extremities and awake; no focal motor deficits Psychiatric: A+Ox3, euthymic affect Lymphatic: no lymphedema Results & Data Results & Data ([facility]) Vital Signs (Past 12 Hours) Vital Signs Temp Pulse Resp BP Pulse Ox 04/13/20 07:11 36.5 C 79 18 129/76 98 Laboratory Results 04/13/20 04/13/20 04/12/20 Range/Units 06:05 01:46 21:58 Sodium 131 L 129 L 130 L (136-145) mmol/L Potassium 4.4 4.5 4.9 (3.5-5.1) mmol/L Chloride 97 L 96 L 97 L (98-107) mmol/L Carbon Dioxide 27 26 23 (21-32) mmol/L Anion Gap 7.0 7.0 11.0 (3-11) BUN 17 16 18 (7-18) mg/dl Creatinine 0.74 0.81 0.83 (0.6-1.2) mg/dl Est Cr Clr Drug Dosing 46.5 42.5 41.5 ml/min Est GFR ( Amer) 88.7 79.5 77.2 Est GFR (Non-Af Amer) 76.5 68.6 66.6 BUN/Creatinine Ratio 22.8 H 20.4 H 21.2 H (10-20) Glucose 122 H 114 H 116 H (70-99) mg/dl Calcium 8.8 9.5 9.9 (8.5-10.1) mg/dl TSH (0.300-4.500) uIu/ml 04/12/20 04/12/20 04/12/20 Range/Units 17:34 14:05 12:27 Sodium 130 L 129 L (136-145) mmol/L Potassium 4.6 4.3 (3.5-5.1) mmol/L Chloride 97 L 96 L (98-107) mmol/L Carbon Dioxide 26 25 (21-32) mmol/L Anion Gap 7.0 9.0 (3-11) BUN 18 19 H (7-18) mg/dl Creatinine 0.90 0.90 (0.6-1.2) mg/dl Est Cr Clr Drug Dosing 38.2 38.2 ml/min Est GFR ( Amer) 70.0 70.0 Est GFR (Non-Af Amer) 60.4 60.4 BUN/Creatinine Ratio 20.0 20.8 H (10-20) Glucose 142 H 110 H (70-99) mg/dl Calcium 9.9 9.2 (8.5-10.1) mg/dl TSH 7.090 H (0.300-4.500) uIu/ml PG Care Time/CCT Total # of Minutes Spent Total Time Spent with Patient: Total time spent is greater than 50% in coordination of care (as documented) at patient's floor/unit and/or counseling patient: Coding Level of Care Code 06917 Subseq Hosp Care Lvl 2 Diagnoses Lethargy R53.83 Hyponatremia E87.1 Hypocalcemia E83.51 Constipation K59.03 Constipation type: drug induced constipation CAD (coronary artery disease) I25.10 HTN (hypertension) I10 Hypertension type: essential hypertension Status post total right knee replacement Z96.651 Peripheral neuropathy G62.81 Nausea R11.0 Pacemaker Z95.0 Dyslipidemia E78.5 GERD (gastroesophageal reflux disease) K21.9 Asthma J45.909 Abnormal TSH R79.89 DVT prophylaxis Z29.9 (1) Constipation Constipation type: drug induced constipation Qualified Code(s): K59.03 - Drug induced constipation (2) HTN (hypertension) Hypertension type: essential hypertension Qualified Code(s): I10 - Essential (primary) hypertension (3) Peripheral neuropathy Qualified Code(s): G62.81 - Critical illness polyneuropathy
[2020-04-13] MEDS ORDERED: LACTULOSE SYRUP 20 GM/30 ML UDC PO PRN (13:56)
[2020-04-13] MEDS ORDERED: SODIUM CHLORIDE 0.9% 1000ML 1,000 ML IV SCH (14:00)
[2020-04-13] MEDS ORDERED: PANTOprazole 40 MG TAB PO ONE (19:59)
[2020-04-13] MEDS ORDERED: CALCIUM CARBONATE 500 MG CHEWABLE TAB PO PRN (20:00)
[2020-04-13] MEDS: oxyCODONE HCL IR 5 MG TAB (IMMEDIATE RELEASE) PO PRN (20:35)
[2020-04-13] MEDS: PRAVASTATIN SOD 40 MG TAB PO SCH (20:37)
[2020-04-13] MEDS: PREMARIN VAG CRM 14 APPLN/30 GM TUBE PV SCH (20:37)
[2020-04-13] MEDS: METOPROLOL SUCC 25MG EXT REL TAB PO SCH (20:39)
[2020-04-13] MEDS ORDERED: SENNA 8.6 MG TAB PO SCH (21:00)
[2020-04-14 06:09] LABS: Basophils # (auto) 0.02 K/uL (0-0.2); Basophils % (auto) 0.2 %; Eosinophils # (auto) 0.67 K/uL (0-0.5); Eosinophils % (auto) 7.4 %; Hematocrit (blood only) 24.9 % (37-47); Hemoglobin 8.5 g/dL (12.0-16.0); Immature Granulocytes # (auto) 0.02 K/uL (0.00-0.02); Immature Granulocytes % (auto) 0.2 %; Lymphocytes # (auto) 1.78 K/uL (1.2-3.4); Lymphocytes % (auto) 19.6 %; Mean Corpuscular Hemoglobin 30.2 pg (25-34); Mean Corpuscular Hgb Conc 34.1 g/dL (32-36); Mean Corpuscular Volume 88.6 fL (80-100); Mean Platelet Volume 9.4 fL (7.4-10.4); Monocytes # (auto) 1.21 K/uL (0.11-0.59); Monocytes % (auto) 13.3 %; Neutrophils % (auto) 59.3 %; Platelet Count 308 K/uL (130-400); RDW Coefficient of Variation 13.2 % (11.5-14.5); RDW Standard Deviation 43.1 fL (36.4-46.3); Red Blood Count 2.81 M/uL (4.2-5.4)
[2020-04-14] MEDS: ACETAMINOPHEN 500 MG TAB PO SCH ×2 (06:14→14:06)
[2020-04-14 06:42] LABS: BUN Creatinine Ratio 22.8 (10-20); Creatinine Clr Calc Pharmacy 45.9 ml/min; Est GFR (African American) 87.3; Est GFR (Non-African American) 75.3; Potassium 4.2 mmol/L (3.5-5.1)
[2020-04-14 06:46] LABS: T4 Free Thyroxine 1.17 ng/dl (0.8-1.6)
[2020-04-14] MEDS: DOCUSATE SODIUM 100 MG CAP PO SCH (08:41)
[2020-04-14] MEDS: TOCOPHERYL, DL-ALPHA 400 UNITS CAP PO SCH (08:41)
[2020-04-14] MEDS: ESTROGENS, CONJUGATED 0.625 MG TAB PO SCH (08:41)
[2020-04-14] MEDS: CALCIUM CARBONATE 500 MG CHEWABLE TAB PO SCH (08:42)
[2020-04-14] MEDS: ASPIRIN 81 MG ECTAB PO SCH (08:42)
[2020-04-14] MEDS: VALSARTAN 80 MG TAB PO SCH (08:42)
[2020-04-14] MEDS: MULTIVITAMIN TAB PO SCH (08:42)
[2020-04-14] MEDS: ASCORBIC ACID 500 MG TAB PO SCH (08:42)
[2020-04-14] MEDS: CeleBREX 200 MG CAP PO SCH (08:42)
--- NOTE | 2020-04-14 08:45 | Orthopedic Progress Note ---
Date of Service April 14, 2020 Assessment & Plan (1) Status post total right knee replacement: POD #5 s/p Right TKA -pt/ot -dvt proph with YOSEF/SCD/ASA -am labs-sodium levels improved from previous. 134 this morning, mildly low. -plan for d/c home with HHPT when stable. She did ask about possibly going to [facility]. discussed will see how she feels after therapy and how she does today. Possible discharge home today if cleared by medicine. -As per medicine Admission and Anticipated Discharge Date Admission Date: April 12, 2020 Subjective Patient feeling better today. states nausea and fatigue are improved. Denies chest pain, sob, n/v/d, fever or chills. Review of Systems Constitutional: as per Subjective / HPI Musculoskeletal: as per Subjective / HPI Physical Exam Physical Exam: Right knee CAROLINA dressing is c/d/i. Toes mobile with good dorsiflexion. No calf tenderness, calf soft. Distally n/v status and sensation intact. Constitutional: well developed and well nourished; no acute distress Results & Data ([facility]) Vital Signs (Past 12 Hours) Vital Signs Temp Pulse Resp BP Pulse Ox 04/14/20 08:20 36.7 C 76 16 123/66 97 04/13/20 22:23 36.9 C 83 16 101/63 96
[2020-04-14] MEDS ORDERED: PANTOprazole 40 MG TAB PO SCH (09:00)
--- NOTE | 2020-04-14 13:40 | Hospitalist Progress Note ---
Date of Service April 14, 2020 Assessment & Plan (1) Lethargy: Multifactorial- likely cause is opioid use, hyponatremia-now resolved - Discontinued some of the patient's narcotics and lowered the dose of the oxycodone, pain is controlled - Acid base review from BMP normal - TSH elevated at 7, free T4 is normal-recommend repeat TSH in 6 weeks with PCP - Cortisol random 15 and acceptable - Sleep hygiene strongly recommended EKG repeated with normal rate and response of DDDR pacemaker. (2) Hyponatremia: Na+ 130 on postop day #4. COuld be secondary to poor po intake, low solute diet, in setting of continued HCTZ and lasix use - Cortisol acceptable, TSH elevated and FT4 normal -had 1 L of LR and only up to 131 Received 1 L of normal saline and now sodium improved 134 Nausea and constipation are also improved and she is tolerating p.o. better Serum Osm 278, Urine Osm 220 although was on diuretics when drawn -could be SIADH component due to pain, nausea, gabapentin -continue to hold HCTZ and lasix for 2 more days after discharge and then can restart Follow blood pressure in the meantime Follow-up with PCP (3) Hypocalcemia: Likely related to intake and constipation - Replaced 2 GM Calcium gluconate and normalized (4) Constipation: KUB nonobstructive but with stool - likely component with shifting water and sodium, also noted with hypocalcemia Improved with senna/docusate, bisacodyl suppository, prune juice Recommend adding on fiber once daily given history of IBS as this helps with both loose stools and constipation (5) CAD (coronary artery disease): - Follows with [facility] [place] as outpt with Dr. Cunningham - Continue asa 81 mg, , metoprolol succinate 12.5 mg daily, ARB Follow-up routinely, no acute issues here (6) HTN (hypertension): -BPs controlled despite being off Dyazide and lasix -continue metoprolol and valsartan -Holding Maxide and Lasix for 2 more days as above then can restart (7) Status post total right knee replacement: - Pain management, bowel regimen and DVT ppx with ASA 81 mg BID per the primary team. - Continue to progress with PT and OT (8) Peripheral neuropathy: Okay to restart home gabapentin (9) Nausea: as above, secondary to opioids, constipation, hyponatremia perhaps, and pain antiemetics, bowel regimen given and now much improved also has not been getting her usual PPI-restarted this and along with Tums and now much improved (10) Pacemaker: noted (11) Dyslipidemia: continue statin (12) GERD (gastroesophageal reflux disease): Had not not been receiving her usual PPI-restarted as above now improved (13) Asthma: no acute issues (14) Abnormal TSH: TSH elevated at 7 but free T4 normal Recommend repeating TSH in 4 to 6 weeks with PCP as an outpatient (15) DVT prophylaxis: ASA bid, SCDs Dispo-medically stable for discharge Communicated this with the orthopedics PA who will perform the discharge. Admission and Anticipated Discharge Date Admission Date: April 12, 2020 Subjective Patient feeling much improved today, nausea is resolved and she is eating and drinking. She had another bowel movement last night and her heartburn is completely gone after restarting a PPI and taking Tums. She is making urine and passing gas and feels like she might have a bowel movement again today. Pain is controlled in the knee and took some oxycodone last night. Feeling much less fatigued and is ready to go home Denies chest pain or shortness of breath. I discussed her care with the orthopedics PA Review of Systems Review of Systems: All systems reviewed & are unremarkable except as noted in HPI & below Physical Exam Constitutional: WD/WN, vitals as above Eyes: + eyelid abnormality (chronic OD ptosis) and + anicteric sclerae ENMT: external ear and nose normal, oropharynx normal Neck: trachea midline, no thyromegaly Respiratory: normal respiratory effort, lungs clear to auscultation Cardiovascular: RRR, no murmur, no edema Chest (Breasts): Chest: normal inspection of chest Gastrointestinal (Abdomen): normal bowel sounds, soft, nontender, no hepatosplenomegaly Musculoskeletal: Extremities: + extremities abnormal to inspection (R knee with dressing in place, drain), no cyanosis and no clubbing Skin: no rashes, warm and dry Neurologic: moves all extremities and awake; no focal motor deficits Psychiatric: A+Ox3, euthymic affect Lymphatic: no lymphedema Results & Data Results & Data ([facility]) Vital Signs (Past 12 Hours) Vital Signs Temp Pulse Resp BP Pulse Ox 04/14/20 08:20 36.7 C 76 16 123/66 97 Laboratory Results 04/14/20 04/14/20 Range/Units 05:30 05:30 WBC 9.10 (4.8-10.8) K/uL RBC 2.81 L (4.2-5.4) M/uL Hgb 8.5 L (12.0-16.0) g/dL Hct 24.9 L (37-47) % MCV 88.6 (80-100) fL MCH 30.2 (25-34) pg MCHC 34.1 (32-36) g/dL RDW Std Deviation 43.1 (36.4-46.3) fL RDW Coeff of Lee 13.2 (11.5-14.5) % Plt Count 308 (130-400) K/uL MPV 9.4 (7.4-10.4) fL Immature Gran % (Auto) 0.2 % Neut % (Auto) 59.3 % Lymph % (Auto) 19.6 % [place] % (Auto) 13.3 % Eos % (Auto) 7.4 % Baso % (Auto) 0.2 % Neut # (Auto) 5.40 (1.4-6.5) K/uL Lymph # (Auto) 1.78 (1.2-3.4) K/uL [place] # (Auto) 1.21 H (0.11-0.59) K/uL Eos # (Auto) 0.67 H (0-0.5) K/uL Baso # (Auto) 0.02 (0-0.2) K/uL Immature Gran # (Auto) 0.02 (0.00-0.02) K/uL Sodium 134 L (136-145) mmol/L Potassium 4.2 (3.5-5.1) mmol/L Chloride 99 (98-107) mmol/L Carbon Dioxide 26 (21-32) mmol/L Anion Gap 9.0 (3-11) BUN 17 (7-18) mg/dl Creatinine 0.75 (0.6-1.2) mg/dl Est Cr Clr Drug Dosing 45.9 ml/min Est GFR ( Amer) 87.3 Est GFR (Non-Af Amer) 75.3 BUN/Creatinine Ratio 22.8 H (10-20) Glucose 92 (70-99) mg/dl Calcium 9.0 (8.5-10.1) mg/dl Free T4 1.17 (0.8-1.6) ng/dl PG Care Time/CCT Total # of Minutes Spent Total Time Spent with Patient: Total time spent is greater than 50% in coordination of care (as documented) at patient's floor/unit and/or counseling patient: Coding Level of Care Code 25818 Subseq Hosp Care Lvl 2 Diagnoses Lethargy R53.83 Hyponatremia E87.1 Hypocalcemia E83.51 Constipation K59.03 Constipation type: drug induced constipation CAD (coronary artery disease) I25.10 HTN (hypertension) I10 Hypertension type: essential hypertension Status post total right knee replacement Z96.651 Peripheral neuropathy G62.81 Nausea R11.0 Pacemaker Z95.0 Dyslipidemia E78.5 GERD (gastroesophageal reflux disease) K21.9 Asthma J45.909 Abnormal TSH R79.89 DVT prophylaxis Z29.9 (1) Peripheral neuropathy Qualified Code(s): G62.81 - Critical illness polyneuropathy (2) HTN (hypertension) Hypertension type: essential hypertension Qualified Code(s): I10 - Essential (primary) hypertension (3) Constipation Constipation type: drug induced constipation Qualified Code(s): K59.03 - Drug induced constipation
[2020-04-14] MEDS: oxyCODONE HCL IR 5 MG TAB (IMMEDIATE RELEASE) PO PRN (17:52)
== END 2020-04-14 19:38 | disposition home health service (06) | DRG 470 ==
LOC: 3E 08:48 → ASU 08:48 → OBSVTOIN 13:51

== ENCOUNTER 2021-07-02 05:56 | Observation (INO) ==
--- NOTE | 2021-06-04 10:05 | PAT Medication Instructions ---
Medication Instructions Date of Service June 04, 2021 Home Medications Medication Instructions Recorded gabapentin 300 mg capsule 300 mg PO HS #90 cap 07/21/18 albuterol sulfate 90 mcg/actuation aerosol inhaler (Proventil HFA) 1 - 2 puffs INH UD PRN ascorbic acid (vitamin C) 100 mg tablet 100 mg PO QAM calcium carbonate 600 mg calcium (1,500 mg) tablet 600 mg PO QAM conjugated estrogens 0.625 mg tablet (Premarin) 0.625 mg PO QAM cyclosporine 0.05 % eye drops (Restasis MultiDose) 1 drops OPB BID flaxseed oil 1,300 mg-omega 3,6,9 845 mg-117 mg-117 mg capsule 1 cap PO QPM furosemide 20 mg tablet (Lasix) 20 mg PO QAM metronidazole 0.75 % topical cream (MetroCream) 1 appln TOP QPM multivitamin 1 tab PO QAM nitroglycerin 400 mcg/spray translingual 1 sprays SUBLINGUAL Q5M PRN omeprazole 20 mg capsule,delayed release 20 mg PO QAM potassium chloride 10 mEq capsule,extended release 20 meq PO QAM pravastatin 80 mg tablet 80 mg PO QPM gabapentin 300 mg capsule 300 mg PO HS conjugated estrogens 0.625 mg/gram vaginal cream (Premarin) 0.625 mg VAGINAL HS triamterene 37.5 mg-hydrochlorothiazide 25 mg tablet (Maxzide-25mg) 1 tab PO QAM valsartan 80 mg tablet (Diovan) 80 mg PO QPM metoprolol succinate 25 mg tablet,extended release 24 hr (Toprol XL) 12.5 mg PO HS vitamin E 1,000 unit capsule 1,000 unit PO QAM Continue as directed nitroglycerin 400 mcg/spray translingual 1 sprays SUBLINGUAL Q5M PRN (if needed) ASK your surgeon for instructions conjugated estrogens 0.625 mg tablet (Premarin) 0.625 mg PO QAM (continue as normal unless told otherwise by surgeon) STOP taking 2 weeks before surgery (or as soon as possible if surgery is within 2 weeks) flaxseed oil 1,300 mg-omega 3,6,9 845 mg-117 mg-117 mg capsule 1 cap PO QPM vitamin E 1,000 unit capsule 1,000 unit PO QAM STOP taking 24 hours before surgery metronidazole 0.75 % topical cream (MetroCream) 1 appln TOP QPM DO NOT take the morning of surgery ascorbic acid (vitamin C) 100 mg tablet 100 mg PO QAM calcium carbonate 600 mg calcium (1,500 mg) tablet 600 mg PO QAM multivitamin 1 tab PO QAM potassium chloride 10 mEq capsule,extended release 20 meq PO QAM triamterene 37.5 mg-hydrochlorothiazide 25 mg tablet (Maxzide-25mg) 1 tab PO QAM Take morning of surgery With a small sip of water, OTHERWISE NOTHING TO EAT OR DRINK AFTER MIDNIGHT: albuterol sulfate 90 mcg/actuation aerosol inhaler (Proventil HFA) 1 - 2 puffs INH UD PRN (use if needed; please bring rescue inhaler with you to hospital day of surgery if possible) cyclosporine 0.05 % eye drops (Restasis MultiDose) 1 drops OPB BID omeprazole 20 mg capsule,delayed release 20 mg PO QAM Take evening before surgery albuterol sulfate 90 mcg/actuation aerosol inhaler (Proventil HFA) 1 - 2 puffs INH UD PRN (if needed) cyclosporine 0.05 % eye drops (Restasis MultiDose) 1 drops OPB BID pravastatin 80 mg tablet 80 mg PO QPM gabapentin 300 mg capsule 300 mg PO HS conjugated estrogens 0.625 mg/gram vaginal cream (Premarin) 0.625 mg VAGINAL HS valsartan 80 mg tablet (Diovan) 80 mg PO QPM metoprolol succinate 25 mg tablet,extended release 24 hr (Toprol XL) 12.5 mg PO HS Other Notes If you have any questions please call us at [phone] or [phone] or [phone] or [phone]
--- NOTE | 2021-06-06 09:31 | Anesthesiology Consultation ---
Date of Service June 06, 2021 Assessment & Plan (1) Encounter for pre-operative examination: - COVID screening: Per assessment on 06/06: No known COVID-19 positive contacts or current COVID-19 related symptoms. Travel screen negative. Patient vaccinated. Surgeon arranging preop COVID testing. Awaiting results. - Right TKA (04/09/20): SAB at L2/L3 (x2 attempts), Pt with paresthesia on right side during first attempt per records, done at [facility] - EKG adhesives rash: OR made aware that EKG stickers for sensitive skin located in PAT for patient's DOS. - Cardiology note (from 06/03/21 stress test conclusions): "Cardiac clearance for this patient is low to moderate cardiac risk." Chart Review Chart Review: Acceptable Risk for Surgery and Patient seen in Pre Admission Testing Teaching & Discussion Pre-Anesthesia Teaching/Discussion Notes: Instructed NPO after midnight before surgery,except medications with 15 cc of water. Medication instructions provided according to the [facility] guidelines. History Surgery Operation Date: 07/02/21 08:30 Proposed Procedures p Left Total Knee Arthroplasty - Scotty Funk DO Height/Weight Height: 4 ft 8 in Weight: 66.5 kg Allergies Allergy/AdvReac Type Severity Reaction Status Date / Time adhesive Allergy Unknown rash from Verified 06/04/21 08:59 tape, EKG electrode leads balsam jose r Allergy Unknown rash Verified 06/04/21 08:59 hydroquinone Allergy Unknown unknown Verified 06/04/21 08:59 reaction, "told test center administrator by puttying and calking supervisor" thimerosal Allergy Unknown cobalt Verified 06/04/21 08:59 dichloride thimerosal contact solution- itching celecoxib [From Celebrex] AdvReac Unknown N/V Verified 06/04/21 08:59 codeine AdvReac Unknown N/V Verified 06/04/21 08:59 tramadol AdvReac Unknown Conspitation Verified 06/04/21 08:59 (HX IMPACTION), vomiting Medications Home Medications Medication Instructions Recorded Confirmed Last Taken albuterol sulfate 90 mcg/actuation 1 - 2 puffs INH UD PRN 12/14/17 06/04/21 Unknown aerosol inhaler (Proventil HFA) ascorbic acid (vitamin C) 100 mg 100 mg PO QAM 12/14/17 06/04/21 04/08/20 09:00 tablet calcium carbonate 600 mg calcium 600 mg PO QAM tab 12/14/17 06/04/21 04/08/20 09:00 (1,500 mg) tablet conjugated estrogens 0.625 mg 0.625 mg PO QAM 12/14/17 06/04/21 04/08/20 09:00 tablet (Premarin) cyclosporine 0.05 % eye drops 1 drops OPB BID 12/14/17 06/04/21 04/09/20 07:00 (Restasis MultiDose) flaxseed oil 1,300 mg-omega 3,6,9 1 cap PO QPM cap 12/14/17 06/04/21 04/02/20 09:00 845 mg-117 mg-117 mg capsule furosemide 20 mg tablet (Lasix) 20 mg PO QAM 12/14/17 06/04/21 04/08/20 09:00 metronidazole 0.75 % topical cream 1 appln TOP QPM gm 12/14/17 06/04/21 Unknown (MetroCream) multivitamin 1 tab PO QAM 12/14/17 06/04/21 04/08/20 09:00 nitroglycerin 400 mcg/spray 1 sprays SUBLINGUAL Q5M PRN gm 12/14/17 06/04/21 Unknown translingual omeprazole 20 mg capsule,delayed 20 mg PO QAM 12/14/17 06/04/21 04/09/20 06:30 release potassium chloride 10 mEq 20 meq PO QAM 12/14/17 06/04/21 04/08/20 09:00 capsule,extended release pravastatin 80 mg tablet 80 mg PO QPM 12/14/17 06/04/21 04/08/20 23:00 gabapentin 300 mg capsule 300 mg PO HS #90 cap 07/21/18 06/04/21 04/08/20 23:00 conjugated estrogens 0.625 mg/gram 0.625 mg VAGINAL HS 12/26/19 06/04/21 04/08/20 23:00 vaginal cream (Premarin) triamterene 37.5 1 tab PO QAM 12/26/19 06/04/21 04/08/20 09:00 mg-hydrochlorothiazide 25 mg tablet (Maxzide-25mg) valsartan 80 mg tablet (Diovan) 80 mg PO QPM 12/26/19 06/04/2121 09:00 metoprolol succinate 25 mg 12.5 mg PO HS 01/29/20 06/04/21 04/08/20 23:00 tablet,extended release 24 hr (Toprol XL) vitamin E 1,000 unit capsule 1,000 unit PO QAM 10/07/20 06/04/21 Unknown Past Medical History Medical History Anemia Chronic (baseline hgb 9-11s per chart review) Asthma stable Benign thyroid cyst Hx CAD (coronary artery disease) non-obstructive DJD (degenerative joint disease) Dyslipidemia Fatty liver Gastric ulcer Remote hx years ago GERD (gastroesophageal reflux disease) controlled Hepatitis Remote hx years ago after mono History of diverticulitis HTN (hypertension) IBS (irritable bowel syndrome) Hx Lumbar spinal stenosis Osteoarthritis 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 Cunningham Peripheral neuropathy Exercise / Class Metabolic Activity III < 4 Walking/Shop/Light housework Past Family History Family History Mother Family history of diabetes mellitus Brother Family history of diabetes mellitus Brother Family history of colon cancer Brother Family history of esophageal varices Past Surgical History Surgical History History of bunionectomy Left foot History of cardiac cath many years ago History of cataract surgery R/L "HAVE IMPLANTS' History of colonoscopy History of esophagogastroduodenoscopy (EGD) History of tonsillectomy and adenoidectomy History of tooth extraction WTE History of total hip arthroplasty Left (07/2020) at [facility] History of total knee replacement Right TKA (04/09/20): SAB at L2/L3 (x2 attempts), Pt with paresthesia on right side during first attempt per records, done at [facility] Hx of appendectomy Hx of breast biopsy Hx of cholecystectomy Hx of hysterectomy Pacemaker Implanted 09/2019 Past Anesthesia History No Hx of Anesthesia Complications and No Family Hx of Anesthesia Complications History of PONV History of PONV (PONV (with remote surgery felt worsened by pain medication)) Social History Smoking Status: Never smoker Do You Dip or Chew Tobacco: No Hx Alcohol Use: Yes alcohol intake frequency: holidays/special occasions only Hx Substance Use: No substance use type: does not use Review of Systems Patient denies chest pain, shortness of breath, fever, chills, cough, wheezing, palpitations. Physical Exam Vital Signs VITALS BP 130/72 P 69 TEMP 97.6 SP02 100%RA RESP 18 PHYSICAL Full cervical extension range of motion. Full TMJ range of motion. TMD 3 finger breaths Mallampati Score 2 Dentition: intact, + caps Lungs: clear throughout to auscultation Cardiac: regular rate and rhythm, II/ systolic Spine: + scoliosis Carotid arteries: negative bruit Extremities: no edema Lab Results Anesthesia Preop Results Results Anesthesia Widget: WBC 3.72 K/uL (4.8-10.8) L 06/06/21 Hgb 10.4 g/dL (12.0-16.0) L 06/06/21 Hct 32.5 % (37-47) L 06/06/21 Plt 306 K/uL (130-400) 06/06/21 Na 135 mmol/L (136-145) L 06/06/21 K 4.2 mmol/L (3.5-5.1) 06/06/21 Cl 102 mmol/L (98-107) 06/06/21 CO2 24 mmol/L (21-32) 06/06/21 BUN 31 mg/dl (6-23) H 06/06/21 Creat 0.95 mg/dl (0.6-1.2) 06/06/21 Glucose Level 83 mg/dl (70-99(Fasting)) 06/06/21 PT 10.6 Seconds (9.0-12.0) 06/06/21 PTT 25.3 Seconds (21.0-31.0) 06/06/21 INR 1.0 (0.9-1.1) 06/06/21 TSH 3.557 uIu/ml (0.300-4.500) 06/06/21 HA1c 5.3 % (4.5-5.6) 06/06/21 Urine Color Yellow 06/06/21 Urine Appearance Clear (Clear) 06/06/21 Urine pH 5.5 (4.5-7.5) 06/06/21 Urine Specific Roslyn 1.013 (1.000-1.030) 06/06/21 Urine Protein Negative (Negative) 06/06/21 Urine Glucose (UA) Negative (Negative) 06/06/21 Urine Ketones Negative (Negative) 06/06/21 Urine Blood Negative (Negative) 06/06/21 Urine Nitrite Negative (Negative) 06/06/21 Urine Bilirubin Negative (Negative) 06/06/21 Urine Urobilinogen Negative (Negative) 06/06/21 Urine Leukocyte Esterase Negative (Negative) 06/06/21 Blood Type A Positive 06/06/21 Antibody Screen NEGATIVE 06/06/21 Testing Electrocardiogram Date: 06/06/21 Atrialsensed ventricularpaced rhythm at 68 bpm. Chest X-Ray Date: 06/06/21 No acute process within the chest. Mild cardiomegaly. Low lung volumes and S- shaped scoliosis of the thoracolumbar spine. Echocardiogram Date: 12/03/20 EF 55-60%. No RWMA. Mild cLVH. Mild AV sclerosis. Moderate mitral annular calcification. Mild to moderate MR. Moderate TR. Mild pulmonary HTN (PASP 37- 42mmhg). Grade II DD. Stress Test Date: 06/03/21 Type: nuclear Non-diagnostic stress ekg. Based upon nuclaer imaging, no evidence of myocardial ischemia or infarction. "Study is normal" per report. Other Testing Pacer check (03/19/21): Mode DDDR. 8.9-9.3 years battery life. 6bt 1:1 SVT lasting 2 seconds. "No significant device-related abnormalities were noted" per report.
--- NOTE | 2021-06-12 10:28 | History & Physical Report ---
Date of Service June 12, 2021 date of surgery: 07/02/21 Procedure: Left Total Knee Arthroplasty Surgeon: Scotty Funk Assessment & Plan (1) Arthritis of knee, left: Plan: Risks and benefits of procedure discussed in detail today, patient would like to proceed with a left total knee replacement as scheduled. will obtain cardiac clearance prior to surgery as well as obtain PATs at [facility]. Will place on ASA 81mg po bid x 1 month post op, f/u 2 weeks post op for routine post-operative care and x-ray, sooner if having any problems. will make arrangements for HHPT at the time of discharge. At this point in time, has failed conservative measures and would like to proceed with surgical intervention. The risks and benefits have been discussed including, but not limited to, risk of infection, nerve injury, stiffness, loss of motion, failure to improve, etc. Reasonable outcomes and options of treatment were discussed. An explanation of appropriate alternatives to the procedure that may be advantageous were discussed and their risks and benefits, as well as the risks and benefits of not proceeding with treatment. I offered to answer any additional inquiries concerning the treatment involved. All the patient's questions were answered. The patient is agreeable, understanding of the treatment plan and alternatives, and wishes to proceed with the treatment plan. History of Present Illness Chief Complaint: left knee pain Primary Care Provider: [place] Christine Warren Gilliland is a 80 year old female who complains of left knee pain, presents for pre- op evaluation prior to a left total knee replacement. she complains of pain and decreased range of motion in the left knee. she states that the symptoms have been chronic and non-traumatic and rated as moderate-severe. she recently underwent right TKA and has recovered well. The pain is described as aching, sharp and throbbing. Her symptoms are aggravated by ascending stairs, daily activities, first steps while awake walking. Prior NSAIDs include IBU and Aleve. she has been treated with previous cortisone and visco injections in the past without much relief. Allergies Allergy/AdvReac Type Severity Reaction Status Date / Time adhesive Allergy Unknown rash from Verified 06/04/21 08:59 tape, EKG electrode leads balsam jose r Allergy Unknown rash Verified 06/04/21 08:59 hydroquinone Allergy Unknown unknown Verified 06/04/21 08:59 reaction, "told grapple yarder operator by arborist" thimerosal Allergy Unknown cobalt Verified 06/04/21 08:59 dichloride thimerosal contact solution- itching celecoxib [From Celebrex] AdvReac Unknown N/V Verified 06/04/21 08:59 codeine AdvReac Unknown N/V Verified 06/04/21 08:59 tramadol AdvReac Unknown Conspitation Verified 06/04/21 08:59 (HX IMPACTION), vomiting Home Medications Medication Instructions Recorded Confirmed Type albuterol sulfate 90 mcg/actuation 1 - 2 puffs INH UD PRN 12/14/17 06/04/21 History aerosol inhaler (Proventil HFA) ascorbic acid (vitamin C) 100 mg 100 mg PO QAM 12/14/17 06/04/21 History tablet calcium carbonate 600 mg calcium 600 mg PO QAM tab 12/14/17 06/04/21 History (1,500 mg) tablet conjugated estrogens 0.625 mg 0.625 mg PO QAM 12/14/17 06/04/21 History tablet (Premarin) cyclosporine 0.05 % eye drops 1 drops OPB BID 12/14/17 06/04/21 History (Restasis MultiDose) flaxseed oil 1,300 mg-omega 3,6,9 1 cap PO QPM cap 12/14/17 06/04/21 History 845 mg-117 mg-117 mg capsule furosemide 20 mg tablet (Lasix) 20 mg PO QAM 12/14/17 06/04/21 History metronidazole 0.75 % topical cream 1 appln TOP QPM gm 12/14/17 06/04/21 History (MetroCream) multivitamin 1 tab PO QAM 12/14/17 06/04/21 History nitroglycerin 400 mcg/spray 1 sprays SUBLINGUAL Q5M PRN gm 12/14/17 06/04/21 History translingual omeprazole 20 mg capsule,delayed 20 mg PO QAM 12/14/17 06/04/21 History release potassium chloride 10 mEq 20 meq PO QAM 12/14/17 06/04/21 History capsule,extended release pravastatin 80 mg tablet 80 mg PO QPM 12/14/17 06/04/21 History gabapentin 300 mg capsule 300 mg PO HS #90 cap 07/21/18 06/04/21 Rx conjugated estrogens 0.625 mg/gram 0.625 mg VAGINAL HS 12/26/19 06/04/21 History vaginal cream (Premarin) triamterene 37.5 1 tab PO QAM 12/26/19 06/04/21 History mg-hydrochlorothiazide 25 mg tablet (Maxzide-25mg) valsartan 80 mg tablet (Diovan) 80 mg PO QPM 12/26/19 06/04/21 History metoprolol succinate 25 mg 12.5 mg PO HS 01/29/20 06/04/21 History tablet,extended release 24 hr (Toprol XL) vitamin E 1,000 unit capsule 1,000 unit PO QAM 10/07/20 06/04/21 History Past Med/Surg History Medical History Anemia Chronic (baseline hgb 9-11s per chart review) Asthma stable Benign thyroid cyst Hx CAD (coronary artery disease) non-obstructive DJD (degenerative joint disease) Dyslipidemia Fatty liver Gastric ulcer Remote hx years ago GERD (gastroesophageal reflux disease) controlled Hepatitis Remote hx years ago after mono History of diverticulitis HTN (hypertension) IBS (irritable bowel syndrome) Hx Lumbar spinal stenosis Osteoarthritis 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 Cunningham Peripheral neuropathy Surgical History History of bunionectomy Left foot History of cardiac cath many years ago History of cataract surgery R/L "HAVE IMPLANTS' History of colonoscopy History of esophagogastroduodenoscopy (EGD) History of tonsillectomy and adenoidectomy History of tooth extraction WTE History of total hip arthroplasty Left (07/2020) at [facility] History of total knee replacement Right TKA (04/09/20): SAB at L2/L3 (x2 attempts), Pt with paresthesia on right side during first attempt per records, done at [facility] Hx of appendectomy Hx of breast biopsy Hx of cholecystectomy Hx of hysterectomy Pacemaker Implanted 09/2019 Family History Mother Family history of diabetes mellitus Brother Family history of diabetes mellitus Brother Family history of colon cancer Brother Family history of esophageal varices Social History Smoking Status: Never smoker Second Hand Exposure: Yes (IN THE PAST); Hx Alcohol Use: Yes Hx Substance Use: No Preferred Language: Yoruba Communication Ability: Effective Electron Tube Assembler Required: No Beliefs That Will Affect Care: None marital status: Current Living Situation: Spouse current occupational status: retired Feels Safe at Home: Yes Assistive Devices: Cane Review of Systems Review of Systems: All systems reviewed & are unremarkable except as noted in HPI & below Constitutional: no fever, no chills and no sweats Respiratory: no cough and no dyspnea Cardiovascular: no chest pain, no dyspnea and no orthopnea Gastrointestinal: no abdominal pain, no nausea and no vomiting Musculoskeletal: as per Subjective / HPI Physical Exam Physical Exam: HT: 4ft 7in WT: 68.4kg Constitutional: WD/WN, vitals as above no acute distress Respiratory: normal respiratory effort, lungs clear to auscultation no respiratory distress, no labored breathing and does not use accessory muscles Cardiovascular: RRR, no murmur, no edema Gastrointestinal (Abdomen): normal bowel sounds, soft, nontender, no hepatosplenomegaly Musculoskeletal: Knee: + knee abnormal to inspection (LEFT KNEE), + effusion (+1 effusion), + limited ROM of knee (ROM 0/3/110), + knee ROM with crepitation, + joint line tenderness (medial joint line) and + Lily's sign positive; no deformity, no skin erythema, no ecchymosis, no valgus laxity, no varus laxity, a nterior drawer test negative, Renuka's sign negative and pivot shift test negative Results & Data Results & Data ([facility]) Diagnostic Findings Left Knee X-ray: left knee series confirm advanced degenerative changes to the left knee tricompartmentally, showing joint space narrowing, osteophyte formation and sub chondral sclerosis. no acute bony pathology noted.
--- NOTE | 2021-07-01 14:19 | Communication Note ---
Date of Service: July 01, 2021 Patient contacted clinic, she states Diovan/valsartan is listed on medication instruction list as taken in evening, but she in fact takes this in the morning and wanted to check if that was acceptable to continue day of surgery. She was advised that it should NOT be taken day of surgery, she states is aware to hold next dose and will be resumed by hospital team after surgery. She requested phone number to call OR for surgery and arrival times, which I provided and patient confirmed back to myself. She verbalized understanding and denied additional questions or concerns, expressed appreciation for call.
[2021-07-02] MEDS ORDERED: dexAMETHasone 4 MG TAB PO SCH (06:00)
[2021-07-02] MEDS ORDERED: TRANEXAMIC ACID 1,000 MG **IV Pre-op IV SCH (06:00)
[2021-07-02] MEDS ORDERED: ceFAZolin 1000MG 1,000 MG/7.5 ML SYR IV SCH (06:00)
[2021-07-02] MEDS ORDERED: ROPIVACAINE 0.5% HCL/PF 150 MG, BUPIVACAINE 0.75% MPF 20 ML, EPINEPHrine 30MG/30ML (OR ... INSTIL SCH (06:00)
[2021-07-02] MEDS ORDERED: CeleBREX 200 MG CAP PO SCH (06:00)
[2021-07-02] MEDS ORDERED: LR 500ML BOLUS, THEN 15ML/HR IV SCH (06:00)
[2021-07-02] MEDS ORDERED: TRANEXAMIC ACID 1,000 MG **IV Intra-op IV SCH (06:00)
[2021-07-02] MEDS ORDERED: ACETAMINOPHEN 500 MG TAB PO SCH (06:00)
[2021-07-02] MEDS ORDERED: METOCLOPRAMIDE HCL 10 MG TABLET PO SCH (06:00)
[2021-07-02] MEDS ORDERED: FAMOTIDINE 20 MG TAB PO SCH (06:00)
[2021-07-02] MEDS ORDERED: oxyCODONE HCL 10 MG TABCR (OxyCONTIN) PO SCH (06:00)
[2021-07-02] MEDS ORDERED: GABAPENTIN 300 MG CAP PO SCH (06:00)
[2021-07-02] MEDS ORDERED: EPINEPHrine INJ 1 MG/ML AMP ONE (06:23)
[2021-07-02] MEDS ORDERED: BUPIVACAINE 0.5 % 5 MG/1 ML PF 10ML VIAL ONE (06:24)
[2021-07-02] MEDS ORDERED: DEXAMETHASONE SOD INJ 4 MG/ML VIAL ONE (06:24)
[2021-07-02] MEDS ORDERED: BUPIVACAINE 0.25% 30 ML VIAL ONE (06:24)
[2021-07-02] MEDS ORDERED: MIDAZOLAM HCL 1 MG/ML 2ML VIAL ONE (07:06)
[2021-07-02] MEDS ORDERED: PROPOFOL IV EMULSION 10 MG/ML 20 ML VIAL IV ONE (07:06)
[2021-07-02] MEDS ORDERED: ONDANSETRON INJ 2 MG/ML 2 ML VIAL ONE (07:06)
[2021-07-02] MEDS ORDERED: LIDOCAINE 2% 2 ML VIAL/AMP(20MG/ML) INFIL ONE (07:06)
--- NOTE | 2021-07-02 07:07 | History & Physical Bridge Note ---
Date of Service July 02, 2021 History & Physical Bridge Note I have examined the patient, reviewed the History & Physical and in the interval since the performance of the History & Physical I have noted the following changes of clinical significance: no changes noted
[2021-07-02] MEDS ORDERED: ORTHO JOINT ANESTHETIC ONE (07:09)
[2021-07-02] MEDS ORDERED: ATROPINE SULFATE 0.1 MG/ML 10ML SYR IV PRN (08:06)
[2021-07-02] MEDS ORDERED: fentaNYL citrate 100 MCG/2 ML VIAL IV PRN (08:06)
[2021-07-02] MEDS ORDERED: ePHEDrine sulfate 50 MG/ML AMP IV PRN (08:06)
[2021-07-02] MEDS ORDERED: ONDANSETRON INJ 2 MG/ML 2 ML VIAL IV PRN ×2 (08:06→13:29)
--- NOTE | 2021-07-02 10:16 | Operative Report ---
Post Operative Report Pre & Post Diagnosis Operation Date: 07/02/21 08:25 Pre-Op Diagnosis: Left Osteoarthritis Knee Post-Op Diagnosis: Left Osteoarthritis Knee I identified the patient and participated in the time-out.: Yes Procedure Operation Date: 07/02/21 08:25 Actual Procedures p Left Total Knee Arthroplasty(Left) utilizing [employer] patient matched total knee arthroplasty size 2 femur size 1 tibia 13 constrained polytwenty 6 oval patella Scotty Funk DO Surgeon Scotty Funk DO Quarrying Specialist Pritesh HERNANDEZ Estimated Blood Loss 5 Findings Consistent with Post-Op Diagnosis Patient presents with severe end-stage DJD valgus alignment hyperextension by 6 degrees to the knee with a severe end-stage DJD eburnated [id number] with cartilage loss marginal osteophyte subchondral sclerosis moderate to large effusion Specimens Bone and cartilage Drains Medium bore Hemovac Anesthesia Type MAC Spinal Regional Complications none Disposition Accompanied Patient To Recovery: No Disposition: Recovery Room Indications Patient presents with severe end-stage DJD after failed attempted conservative management clinic physical therapy anti-inflammatories relative rest activity modification corticosteroid injection viscosupplementation above intraoperative findings were noted. Description of Procedure After proper prepping and draping of the Right lower extremity anterior midline incision was made over the region of the extensor extensor mechanism after meticulous hemostasis was obtained and maintained in subcutaneous tissues a medial parapatellar incision was made The patella was subluxed lateralward the medial lateral gutter were cleaned from any hypertrophic synovitis and scar tissue of the distal femoral block was placed and the distal femoral osteotomy cut was made subsequently the chamfers anterior and posterior osteotomy cuts were made utilizing the 4-in-1 block the tibia was subsequently subluxed anteriorward medial and ateral meniscal remnants were excised in their entirety remnants of the anterior and posterior cruciate ligaments were excised in their entirety excellent exposure of the proximal tibia was obtained the tibial osteotomy guide was placed on the proximal tibial osteotomy cut was made once again the knee was irrigated with copious amounts of sterile saline solution the patella was subsequently everted lateralward thickened scar tissue around the patella was removed the patella was subsequently cut utilizing a freehand te chnique and was drilled prepared for final preparation and placement of patella socially flexion-extension gaps were checked and the equal and symmetric trials were placed to the appropriate femoral and tibial trials with poly-spacer being placed for equal flexion and extension gaps and full range of motion including extension to 0 and flexion to 140 the trial components after having been taken to recovery range of motion was subsequently removed meticulous hemostasis was obtained and maintained subsequently a knee block injection of joint cocktail including ropivacaine 0.5% 150 mg. Bupivacaine 0.5% epinephrine 1-200,030 mL's toradol 30 mg dexamethasone 4 mg ketamine 10 mg clonidine 100 micrograms normal saline solution 30 mg was infiltrated into the soft tissues of the posterior knee medial lateral gutters and periosteal synovium special attention was paid to protect neurovascular structures at all times subsequently trial components having been removed the knee was irrigated with sterile saline solution. debris was removed the proximal tibia was subsequently prepared and was made ready for the placement of the tibial component tibial component was also cemented and tamped into position the femoral component was subsequently placed and cemented in the position the patellar component was subsequently cemented in position because hemostasis once again obtained and maintained wound having been thoroughly irrigated with debridement and debridement lavage was performed as well as a medial parapatellar incision closed with #1 Vicryl in interrupted fashion subcutaneous was closed with #2 Vicryl skin was closed with skin clips. PA-C was necessary for prepping and drapping as well as wound closure of deep fascia Sub cutaneous tissue and skin and was necessary for the case. A sterile compressive dressing was placed patient was taken to recovery in stable condition of report dictated by Good I attest to the content of the Intraoperative Record and any orders documented therein. Any exceptions are noted below.Due to the complex nature of the procedure, the entire surgery was performed with the operational assistance of Pritesh MAI. The legal document assistant, under direct supervision, was involved in the actual performance of all aspects of the surgical procedure including hemostasis, tissue retraction and incision, instrument management, patient positioning, and wound closure. I attest to the content of the Intraoperative Record and any orders documented therein. Any exceptions are noted below.
--- NOTE | 2021-07-02 12:28 | XRay Report ---
XR knee LT 1 or 2V routine HISTORY: 80 years-old Female Surgical Post Op [total joint arthroplasty COMPARISON: MRI left knee 06/06/2021 TECHNIQUE: 2 views of the left knee FINDINGS: Left knee total joint arthroplasty with patellar resurfacing. Anterior midline skin lawanda are noted along with expected postoperative soft tissue swelling and deep tissue air. Surgical drainage cathet er in place. No acute fracture or unexpected opaque foreign body. IMPRESSION: Left knee total joint arthroplasty with expected postoperative changes. ACT 112: Negative or not required by law. The above report was generated using voice recognition software. It may contain grammatical, syntax o r spelling errors. Electronically signed by: Dmitriy Temple M.D. 07/02/2021 12:26 PM
--- NOTE | 2021-07-02 12:30 | Anesthesiology Progress Note ---
Date of Service July 02, 2021 Anesthesia Post Procedure Vital Signs Vital Signs: Temp Pulse Pulse Resp BP Pulse Ox 07/02/21 12:15 69 17 121/63 96 07/02/21 12:05 70 11 L 113/75 94 07/02/21 11:55 70 12 131/62 95 07/02/21 11:45 70 14 124/58 L 96 07/02/21 11:35 71 12 133/60 95 07/02/21 11:25 71 12 138/59 L 96 07/02/21 11:15 71 14 92/37 L 100 07/02/21 11:05 70 14 104/43 L 100 07/02/21 10:57 36.0 C L 74 12 104/50 L 100 07/02/21 06:55 36.5 C 69 18 175/74 H 98 Pain Intensity Lower Back: Pain Intensity: 4 Transfer of Care Handoff Completed per policy Notes Mental Status: alert / awake / arousable Patient Amnestic to Procedure: Yes Nausea / Vomiting: adequately controlled Pain: adequately controlled Airway Patency, RR, SpO2: stable & adequate BP & HR: stable & adequate Hydration State: stable & adequate Neuraxial Anesthesia: was administered and sensory block is resolving Anesthetic Complications: no major complications apparent and Pt Satisfied with anesthetic care
[2021-07-02] MEDS ORDERED: MAGNESIUM HYDROXIDE SUSP 30 ML UDC PO PRN (13:29)
[2021-07-02] MEDS ORDERED: ALBUTEROL HFA 8 GM INHALER INH PRN (13:29)
[2021-07-02] MEDS ORDERED: NALOXONE HCL 0.4 MG/1 ML VIAL/CARP IV PRN (13:29)
[2021-07-02] MEDS ORDERED: oxyCODONE HCL IR 5 MG TAB (IMMEDIATE RELEASE) PO PRN (13:29)
[2021-07-02] MEDS ORDERED: HYDROmorphone INJ 0.5 MG/0.5 ML SYR IV PRN (13:29)
[2021-07-02] MEDS ORDERED: bisacodyL 10 MG SUPP PR PRN (13:29)
[2021-07-02] MEDS ORDERED: NITROGLYCERIN SL 0.4 MG/TAB TAB SL PRN (14:04)
[2021-07-02] MEDS: ACETAMINOPHEN 500 MG TAB PO SCH ×2 (14:31→21:09)
[2021-07-02] MEDS: SODIUM CHLORIDE 0.9% 1000ML 1,000 ML IV SCH ×2 (14:31→23:37)
[2021-07-02] MEDS: ceFAZolin 1000MG 1,000 MG/7.5 ML SYR IV SCH (17:56)
[2021-07-02] MEDS: PRAVASTATIN SOD 40 MG TAB PO SCH (20:40)
[2021-07-02] MEDS: ASPIRIN 81 MG ECTAB PO SCH (20:40)
[2021-07-02] MEDS: VALSARTAN 80 MG TAB PO SCH (20:41)
[2021-07-02] MEDS: METOPROLOL SUCC 25MG EXT REL TAB PO SCH (20:41)
[2021-07-02] MEDS: DOCUSATE SODIUM 100 MG CAP PO SCH (20:42)
[2021-07-02] MEDS: GABAPENTIN 300 MG CAP PO SCH (20:42)
[2021-07-02] MEDS: SENNA 8.6 MG TAB PO SCH (21:42)
[2021-07-03] MEDS: ceFAZolin 1000MG 1,000 MG/7.5 ML SYR IV SCH (01:40)
[2021-07-03] MEDS: ACETAMINOPHEN 500 MG TAB PO SCH ×3 (05:25→21:10)
[2021-07-03] MEDS: CALCIUM CARBONATE 1250MG TAB PO SCH (08:21)
[2021-07-03] MEDS: DOCUSATE SODIUM 100 MG CAP PO SCH ×2 (08:22→21:11)
[2021-07-03] MEDS: ASPIRIN 81 MG ECTAB PO SCH ×2 (08:22→21:10)
[2021-07-03] MEDS: TOCOPHERYL, DL-ALPHA 400 UNITS 180 MG CAP PO SCH (08:22)
[2021-07-03 08:23] LABS: Hematocrit (blood only) 27.7 % (37-47); Hemoglobin 8.8 g/dL (12.0-16.0); Mean Corpuscular Hemoglobin 28.1 pg (25-34); Mean Corpuscular Hgb Conc 31.8 g/dL (32-36); Mean Corpuscular Volume 88.5 fL (80-100); Mean Platelet Volume 9.9 fL (7.4-10.4); Platelet Count 286 K/uL (130-400); RDW Coefficient of Variation 14.1 % (11.5-14.5); RDW Standard Deviation 46.2 fL (36.4-46.3); Red Blood Count 3.13 M/uL (4.2-5.4); White Blood Count 12.21 K/uL (4.8-10.8)
[2021-07-03] MEDS: FUROSEMIDE 20 MG TAB PO SCH (08:23)
[2021-07-03] MEDS: TRIAMTERENE/HCTZ 37.5/25MG TAB PO SCH (08:23)
[2021-07-03] MEDS: POTASSIUM CHLORIDE CRTAB 20 MEQ TABCR PO SCH (08:24)
[2021-07-03 08:52] LABS: BUN Creatinine Ratio 17.9 (10-20); Calcium 8.1 mg/dl (8.5-10.1); Creatinine Clr Calc Pharmacy 43.7 ml/min; Est GFR (African American) 82.6 ml/min; Est GFR (Non-African American) 71.3 ml/min; Potassium 3.8 mmol/L (3.5-5.1)
[2021-07-03] MEDS: MULTIVITAMIN TAB PO SCH (09:13)
--- NOTE | 2021-07-03 09:55 | Orthopedic Progress Note ---
Date of Service July 03, 2021 Assessment & Plan (1) Arthritis of right knee: Plan: Postop day 1 status post right total knee arthroplasty PT/OT protocols. Weightbearing as tolerated. DVT prophylaxis-aspirin p.o. twice daily, SCDs, YOSEF capellan. Pain management as written. DC planning-patient is planning for home health services upon discharge. Admission and Anticipated Discharge Date Admission Date: July 02, 2021 Supervising Physician Co-Signing Physician Notes Patient seen and examined. Agree with DAVID Mooney's note as above. She appears comfortable, but is complaining of pain in that left knee. She says it hurts worse than her previous right total knee replacement. She is only ambulated in her room today. We will plan to keep her another night and hopefully discharge tomorrow. Subjective Postop day 1 Patient sitting at the bedside getting ready to do her physical therapy session. Her Hemovac had accidentally opened and instilled a little bit of drainage blood. Patient appears comfortable and is not complaining of pain. Physical Exam Physical Exam: Dressings are clean, dry, and intact. Calves are soft nontender. Neurovascular is intact. Toes are mobile. Results & Data ([facility]) Vital Signs (Past 12 Hours) Vital Signs Temp Pulse Resp BP Pulse Ox 07/03/21 08:14 64 129/69 07/03/21 07:33 36.5 C 60 18 111/52 L 96 07/03/21 04:04 36.7 C 74 18 126/71 97 07/02/21 22:24 36.9 C 59 L 16 142/67 H 98 Laboratory Results Laboratory Results WBC 12.21 K/uL (4.8-10.8) H 07/03/21 07:33 RBC 3.13 M/uL (4.2-5.4) L 07/03/21 07:33 Hgb 8.8 g/dL (12.0-16.0) L 07/03/21 07:33 Hct 27.7 % (37-47) L 07/03/21 07:33 MCV 88.5 fL (80-100) 07/03/21 07:33 MCH 28.1 pg (25-34) 07/03/21 07:33 MCHC 31.8 g/dL (32-36) L 07/03/21 07:33 RDW Std Deviation 46.2 fL (36.4-46.3) 07/03/21 07:33 RDW Coeff of Lee 14.1 % (11.5-14.5) 07/03/21 07:33 Plt Count 286 K/uL (130-400) 07/03/21 07:33 MPV 9.9 fL (7.4-10.4) 07/03/21 07:33 Sodium 132 mmol/L (136-145) L 07/03/21 07:33 Potassium 3.8 mmol/L (3.5-5.1) 07/03/21 07:33 Chloride 101 mmol/L (98-107) 07/03/21 07:33 Carbon Dioxide 22 mmol/L (21-32) 07/03/21 07:33 Anion Gap 9 (3-11) 07/03/21 07:33 BUN 14 mg/dl (6-23) 07/03/21 07:33 Creatinine 0.78 mg/dl (0.6-1.2) 07/03/21 07:33 Est Cr Clr Drug Dosing 43.7 ml/min 07/03/21 07:33 Est GFR ( Amer) 82.6 ml/min 07/03/21 07:33 Est GFR (Non-Af Amer) 71.3 ml/min 07/03/21 07:33 BUN/Creatinine Ratio 17.9 (10-20) 07/03/21 07:33 Glucose 111 mg/dl (70-99(Fasting)) H 07/03/21 07:33 Calcium 8.1 mg/dl (8.5-10.1) L 07/03/21 07:33 SARS-CoV-2, RNA, NAAT NEGATIVE (NEGATIVE) 07/02/21 06:10 Impressions Knee X-Ray 07/02/21 11:53 XR knee LT 1 or 2V routine HISTORY: 80 years-old Female Surgical Post Op [total joint arthroplasty COMPARISON: MRI left knee 06/06/2021 TECHNIQUE: 2 views of the left knee FINDINGS: Left knee total joint arthroplasty with patellar resurfacing. Anterior midline skin lawanda are noted along with expected postoperative soft tissue swelling and deep tissue air. Surgical drainage catheter in place. No acute fracture or unexpected opaque foreign body. IMPRESSION: Left knee total joint arthroplasty with expected postoperative changes. ACT 112: Negative or not required by law. The above report was generated using voice recognition software. It may contain grammatical, syntax or spelling errors. Electronically signed by: Dmitriy Temple M.D. 07/02/2021 12:26 PM
[2021-07-03] MEDS: PRAVASTATIN SOD 40 MG TAB PO SCH (21:09)
[2021-07-03] MEDS: VALSARTAN 80 MG TAB PO SCH (21:09)
[2021-07-03] MEDS: SENNA 8.6 MG TAB PO SCH (21:10)
[2021-07-03] MEDS: METOPROLOL SUCC 25MG EXT REL TAB PO SCH (21:11)
[2021-07-03] MEDS: GABAPENTIN 300 MG CAP PO SCH (21:11)
[2021-07-04] MEDS: ACETAMINOPHEN 500 MG TAB PO SCH ×2 (05:12→14:43)
[2021-07-04 06:13] LABS: Basophils # (auto) 0.01 K/uL (0-0.2); Basophils % (auto) 0.2 %; Eosinophils # (auto) 0.14 K/uL (0-0.5); Eosinophils % (auto) 2.3 %; Hemoglobin 8.5 g/dL (12.0-16.0); Immature Granulocytes # (auto) 0.02 K/uL (0.00-0.02); Immature Granulocytes % (auto) 0.3 %; Lymphocytes # (auto) 1.76 K/uL (1.2-3.4); Lymphocytes % (auto) 28.6 %; Mean Corpuscular Hemoglobin 28.5 pg (25-34); Mean Corpuscular Hgb Conc 32.7 g/dL (32-36); Mean Corpuscular Volume 87.2 fL (80-100); Mean Platelet Volume 9.3 fL (7.4-10.4); Monocytes # (auto) 0.88 K/uL (0.11-0.59); Monocytes % (auto) 14.3 %; Neutrophils # (auto) 3.35 K/uL (1.4-6.5); Neutrophils % (auto) 54.3 %; Platelet Count 241 K/uL (130-400); RDW Coefficient of Variation 14.2 % (11.5-14.5); RDW Standard Deviation 45.2 fL (36.4-46.3); Red Blood Count 2.98 M/uL (4.2-5.4); White Blood Count 6.16 K/uL (4.8-10.8)
[2021-07-04] MEDS: DOCUSATE SODIUM 100 MG CAP PO SCH (08:35)
[2021-07-04] MEDS: TRIAMTERENE/HCTZ 37.5/25MG TAB PO SCH (08:35)
[2021-07-04] MEDS: CALCIUM CARBONATE 1250MG TAB PO SCH (08:36)
[2021-07-04] MEDS: POTASSIUM CHLORIDE CRTAB 20 MEQ TABCR PO SCH (08:36)
[2021-07-04] MEDS: TOCOPHERYL, DL-ALPHA 400 UNITS 180 MG CAP PO SCH (08:37)
[2021-07-04] MEDS: ASPIRIN 81 MG ECTAB PO SCH (08:37)
[2021-07-04] MEDS: MULTIVITAMIN TAB PO SCH (08:37)
[2021-07-04] MEDS: FUROSEMIDE 20 MG TAB PO SCH (08:38)
--- NOTE | 2021-07-04 14:29 | Communication Note ---
Date of Service: July 04, 2021 Patient with complaints of anterior knee pain this seems to be worse than when she had her right knee done. However, she does have some posterior knee pain. She and her have concerns because they lost their daughter and a friend to DVTs post knee surgeries. A venous Doppler of the left lower extremity will be ordered to be done prior to her discharge.
--- NOTE | 2021-07-04 15:57 | Ultrasound Report ---
LEFT LOWER EXTREMITY VENOUS DOPPLER CLINICAL HISTORY: Rule out DVT post TKA COMPARISON STUDY: No previous studies for comparison. TECHNIQUE: Sonography of the deep venous system of the left lower extremity was performed. Compressi on and augmentation were evaluated. FINDINGS: The left common femoral, superficial femoral and popliteal veins were compressible. Augmen tation was normal. Flow was shown within the deep calf vessels. Note is made of a 7 x 3.1 x 1.9 cm co mplex collection within the left popliteal fossa. IMPRESSION: 1. No evidence of deep venous thrombus within the left lower extremity. 2. 7 x 3.1 x 1.9 cm complex collection within the left popliteal fossa which could reflect a complex popliteal cyst or hematoma. ACT 112: Negative or not required by law. Electronically signed by: Villa Ronquillo M.D. 07/04/2021 3:56 PM
--- NOTE | 2021-07-04 16:14 | Communication Note ---
Date of Service: July 04, 2021 Doppler negative for DVT. Noted small cyst vs hematoma noted in popliteal fossa. Plan for dc to home today when services arranged.
--- NOTE | 2021-07-09 10:36 | Discharge Summary ---
Date of Service July 09, 2021 Admission HPI Per Admitting Provider Darshana is a 80 year old female who complains of left knee pain, presents for pre- op evaluation prior to a left total knee replacement. she complains of pain and decreased range of motion in the left knee. she states that the symptoms have been chronic and non-traumatic and rated as moderate-severe. she recently underwent right TKA and has recovered well. The pain is described as aching, sharp and throbbing. Her symptoms are aggravated by ascending stairs, daily activities, first steps while awake walking. Prior NSAIDs include IBU and Aleve. she has been treated with previous cortisone and visco injections in the past without much relief. Admission Exam Per Admitting Provider Physical Exam: HT: 4ft 7in WT: 68.4kg Constitutional: WD/WN, vitals as above no acute distress Respiratory: normal respiratory effort, lungs clear to auscultation no respiratory distress, no labored breathing and does not use accessory muscles Cardiovascular: RRR, no murmur, no edema Gastrointestinal (Abdomen): normal bowel sounds, soft, nontender, no hepatosplenomegaly Musculoskeletal: Knee: + knee abnormal to inspection (LEFT KNEE), + effusion (+1 effusion), + limited ROM of knee (ROM 0/3/110), + knee ROM with crepitation, + joint line tenderness (medial joint line) and + Lily's sign positive; no deformity, no skin erythema, no ecchymosis, no valgus laxity, no varus laxity, anterior drawer test negative, Renuka's sign negative and pivot shift test negative Principal Diagnosis Right knee osteoarthritis Discharge Data Allergies Allergy/AdvReac Type Severity Reaction Status Date / Time adhesive Allergy Unknown rash from Verified 07/02/21 06:47 tape, EKG electrode leads balsam jose r Allergy Unknown rash Verified 07/02/21 06:47 hydroquinone Allergy Unknown unknown Verified 07/02/21 06:47 reaction, "told linotyper by german tutor" thimerosal Allergy Unknown cobalt Verified 07/02/21 06:47 dichloride thimerosal contact solution- itching celecoxib [From Celebrex] AdvReac Unknown N/V Verified 07/02/21 06:47 codeine AdvReac Unknown N/V Verified 07/02/21 06:47 tramadol AdvReac Unknown Conspitation Verified 07/02/21 06:47 (HX IMPACTION), vomiting Procedures Performed Operation Date: 07/02/21 08:25 Actual Procedures p Left Total Knee Arthroplasty(Left) - Scotty Funk DO Ordered Studies 07/02/21 05:00 US - OR guided needle placemen Routine 07/04/21 14:27 US venous doppler LE Stat Hospital Course (1) Arthritis of knee, left: Patient was admitted on the above-noted date and had the above-noted surgery performed of which she tolerated well. On her first postoperative day, she was comfortable in the morning but at the time she was seen later in the afternoon she was complaining of pain in the operative knee. Dressings were clean, dry, and intact. Calves were soft nontender. Neurovascular was intact. Toes were mobile. She was started on PT and OT protocols and continued on DVT prophylaxis and pain management. Hemoglobin was 8.8. She had some minimal ambulation on her first PT attempt and was kept another night. Patient continued to further progress with her physical therapy the following day. Prior to her discharge she was complaining of pain posteriorly and a Doppler was ordered to rule out DVT. This was negative for DVT. She was otherwise remaining stable and progressing well and was felt she be discharged home. Total Time Total Time Spent Total Time Spent (In Minutes): 10 Discharge Plan Discharge Items Patient Disposition: Home - Home Health Services Reason For Visit: Left Osteoarthritis Knee Discharge Diagnosis: Left knee osteoarthritis Activity: Per Instructions section Weightbearing: Left weightbearing Weightbearing Comment: As tolerated with walker Non-emergency contact: Surgeon Call non-emergency contact if: your pain is not controlled, your temperature is above 101.5, your wound has increased redness and your wound has increased drainage Follow-up/Referrals: Guanako Kelley CRNP [Primary Care Provider] - Scotty Funk DO [Surgeon] - (Follow-up in 14 days for your first postoperative visit.) Diet: Regular Ambulatory Orders: Complete Blood Count no Diff (Timed) Timeframe: 3 Days Location: Determined by Patient Ordered By: Pritesh Queen Attending Provider Instructions: ACTIVITY RECOMMENDATIONS: SELF CARE INSTRUCTIONS AFTER TOTAL KNEE REPLACEMENT A. You may need to continue a physical therapy program after discharge from the hospital. There are several options available to you. Your doctor will assist you in selecting the best one for you. 1. An out-patient facility 2 to 3 times a week for therapy or home therapy. 2. Continue working on all exercises taught to you in the hospital. Your goals should be to increase bending of your knee to 90 degrees and beyond and to fully straighten your knee. B. You may progress at your own pace from walking with a walker or crutches to a cane; then to no assistive devices. C. Make walking a part of your daily routine. Be up as much as comfortable with rest periods throughout the day. Rest with leg elevation is very important. Use the ice wrap frequently for the first 3-4 weeks. D. There are no restrictions on activities. You may ride in a car, shop, participate in testing engineer and all social activities. E. Wear the long elastic stockings (YOSEF hose) 20 hours a day for 2 weeks after surgery. They can be removed several times a day for laundering and for a bath. F. You may shower, no tub baths until cleared by your doctor. SPECIAL CARE INSTRUCTIONS: VERY IMPORTANT TO READ AND REVIEW A. There are a few signs you need to watch for after you are home. Call [facility] if you notice any of the followin. Increased severe knee pain. Some pain is expected especially when you exercise. 2. Increased swelling in your leg or knee; pain or swelling of the calf muscle in either lower leg. 3. Any fluid drainage from the incision. 4. Shortness of breath or chest pain. B. Please call [facility] at if you have any concerns or questions about your operation or recovery. The doctor or his nurse will return your call promptly. C. You must take antibiotics before dental work, bladder, bowel or other surgery. Your doctor will provide you with a permanent care to carry describing this precaution. IMPORTANT: * REMEMBER TO TAKE ASPIRIN, 81 MG, TWICE DAILY FOR 4 WEEKS UNLESS OTHERWISE DIRECTED. THIS IS YOUR BLOOD THINNER. * HIGH RISK PATIENTS MAY BE PRESCRIBED A STRONGER BLOOD THINNER. THIS WILL BE PROVIDED AT DISCHARGE. * CALL IF INCREASED PAIN, REDNESS, DRAINAGE OR FEVER GREATER THAT 101. * WEAR YOSEF HOSE 20 HOURS PER DAY FOR 2 WEEKS. * [place] Dressing - This is a large suction dressing covering your incision. This will help pull any excess drainage from the wound and allow your incision to heal properly. You may shower with this if you can keep the unit outside of the shower. If any bleeding or leakage is noted please call your doctor's office. This will remain on your incision for 7 days and then should be removed. This can be done yourself or by the home nursing staff if applicable. The entire unit is disposable once removed. Once removed, keep incision clean and dry. If redness or drainage is noted, please call your surgeon. . FOLLOW UP VISIT: If appointment is not already scheduled: Please call [facility] to make a follow-up appointment for 2 weeks after your surgery at . Stand-Alone Forms: My [employer] labs, Smoking Cessation Medications and DC Order Prescriptions: New acetaminophen [Tylenol Extra Strength] 500 mg Tablet 1,000 mg PO Q8 14 Days Qty: 84 RF: 0 aspirin 81 mg Tablet,Delayed Release (Dr/Ec) 81 mg PO BID 30 Days Qty: 60 RF: 0 polyethylene glycol 3350 [Miralax] 17 gram powder in packet 17 g PO DAILY PRN (Reason: constipation) Qty: 5 RF: 0 cefadroxil 500 mg capsule 500 mg PO BID Qty: 28 RF: 1 oxycodone 5 mg Tablet 5 mg PO Q4H MDD 6 PRN (Reason: pain) Qty: 30 RF: 0 Continued multivitamin tablet 1 tab PO QAM RF: 0 potassium chloride 10 mEq capsule, extended release 20 meq PO QAM RF: 0 calcium carbonate 600 mg calcium (1,500 mg) tablet 600 mg PO QAM RF: 0 pravastatin 80 mg tablet 80 mg PO QPM RF: 0 metronidazole [MetroCream] 0.75 % cream 1 appln TOP QPM RF: 0 nitroglycerin 400 mcg/spray spray,non-aerosol 1 sprays Sublingual Q5M PRN (Reason: chest pain) RF: 0 ascorbic acid (vitamin C) 100 mg tablet 100 mg PO QAM RF: 0 omeprazole 20 mg capsule,delayed release(DR/EC) 20 mg PO QAM RF: 0 furosemide [Lasix] 20 mg tablet 20 mg PO QAM RF: 0 albuterol sulfate [Proventil HFA] 90 mcg/actuation HFA aerosol inhaler 1 - 2 puffs INH UD PRN (Reason: SHORT OF BREATH) RF: 0 flaxseed oil-omega 3,6,9 1,300 mg-845 mg -117 mg-117 mg capsule 1 cap PO QPM RF: 0 cyclosporine [Restasis MultiDose] 0.05 % drops 1 drops OPB BID RF: 0 gabapentin 300 mg capsule 300 mg PO HS Qty: 90 RF: 1 valsartan [Diovan] 80 mg Tablet 80 mg PO QPM RF: 0 Premarin 0.625 mg/gram Cream 0.625 mg VAGINAL HS RF: 0 triamterene-hydrochlorothiazid [Maxzide-25mg] 37.5-25 mg Tablet 1 tab PO QAM RF: 0 metoprolol succinate [Toprol XL] 25 mg Tablet Extended Release 24 Hr 12.5 mg PO HS RF: 0 vitamin E 1,000 unit Capsule 1,000 unit PO QAM RF: 0 Discontinued conjugated estrogens [Premarin] 0.625 mg tablet 0.625 mg PO QAM RF: 0 Discharge Orders: Discharge Order (Routine); Ordered 07/04/21 Ordered By: Pritesh Cade/Other Patient Handouts: Knee Replacement Recovery at Home, Knee Replace Manage Pain Admission Data Admit Date/Time: 07/02/21 11:53 Attending Provider: Scotty Funk Admit Provider: Scotty Funk Primary Care Provider: Guanako Kelley Other Providers: [facility]Home [facility] Other Interventions: Discharge Summary Assessment (RN) Last Done: 07/04/21 13:09
== END 2021-07-04 17:07 | disposition home health service (06) ==
LOC: ASU 05:56 → PACUINP 05:56 → 3W 13:30